=== PATIENT | male | born 1995 | race Caucasian/White ===

== ENCOUNTER → 2022-11-27 | Outpatient (CLI) | payer BC ==
--- NOTE | 2022-11-27 17:55 | CA ---
Transthoracic Echo Report Name: William Stephenson Age: 27 Gender: M : 1995 Exam Date: 11/27/2022 14:50 Exam Location: [place] [facility] Ht (in): 72 Wt (lb): 160 Ordering Physician: Laya Gannon MD Attending/Referring Phys: Laya Gannon MD [employer] Megan Lewis, [facility] Procedure CPT: Indications: R06.00 Cardiac Hx: Technical Quality: Good Contrast 1: Total Dose (mL): Contrast 2: Total Dose (mL): MEASUREMENTS (Male / Female) Normal Values 2D ECHO LV Diastolic Diameter PLAX 4.4 cm 4.2 - 5.9 / 3.9 - 5.3 cm LV Systolic Diameter PLAX 2.7 cm IVS Diastolic Thickness 1.0 cm 0.6 - 1.0 / 0.6 - 0.9 cm LVPW Diastolic Thickness 1.0 cm 0.6 - 1.0 / 0.6 - 0.9 cm LV Relative Wall Thickness 0.4 RV Internal Dim ED PLAX 3.9 cm LA Systolic Diameter LX 3.1 cm 3.0 - 4.0 / 2.7 - 3.8 cm LV Diastolic Volume MOD 4C 101.8 cm??? LV Systolic Volume MOD 4C 42.3 cm??? LV Ejection Fraction MOD 4C 58.4 % LV Diastolic Length 4C 7.8 cm LV Systolic Length 4C 6.2 cm LV Diastolic Volume MOD 2C 113.8 cm??? LV Systolic Volume MOD 2C 36.7 cm??? LV Ejection Fraction MOD 2C 67.7 % LV Diastolic Length 2C 8.6 cm LV Systolic Length 2C 6.9 cm LA Volume 43.0 cm??? 18 - 58 / 22 - 52 cm??? M-MODE Aortic Root Diameter MM 3.2 cm MV E Point Septal Separation 0.4 cm AV Cusp Separation MM 2.7 cm DOPPLER AV Peak Velocity 130.1 cm/s AV Peak Gradient 6.8 mmHg MV Area PHT 2.8 cm??? Mitral E Point Velocity 85.3 cm/s Mitral A Point Velocity 47.5 cm/s Mitral E to A Ratio 1.8 MV Deceleration Time 267.1 ms TR Peak Velocity 210.0 cm/s TR Peak Gradient 17.6 mmHg Right Ventricular Systolic Press 22.3 mmHg FINDINGS Left Ventricle Left ventricular ejection fraction is estimated at 55-60 %. Normal Left ventricular size, wall thickness, systolic function with no obvious regional wall motion abnormalities. Right Ventricle Moderate right ventricular dilatation. Right ventricular systolic pressure within normal limits. Right Atrium Normal right atrial size. Left Atrium Normal left atrial size. Mitral Valve Structurally normal mitral valve. No mitral stenosis,or prolapse. Trace mitral regurgitation Aortic Valve Trileaflet aortic valve. No aortic valve stenosis or regurgitation. Tricuspid Valve Mobile vegetation seen on the tricuspid valve. Mild tricuspid regurgitation. Pulmonic Valve Structurally normal pulmonic valve. Trace pulmonic regurgitation. Pericardium Normal pericardium. No pericardial effusion. Aorta Normal size aortic root and proximal ascending aorta. CONCLUSIONS 1. Normal size and systolic function 2. An echogenic mass on the tricuspid valve, suggestive of a vegetation, measuring 0.5 x 1 cm with mild tricuspid regurgitation and no pulmonary hypertension Previewed by: Dr. Arvin Martinez MD (Electronically Signed) Final Date: 27 November 2022 17:54
== END | disposition home or self-care (01) ==
LOC: RADECHMAIN 14:48
PROVIDERS: ATTEND Internal Medicine
DX: I36.1 Nonrheumatic tricuspid (valve) insufficiency (principal); R06.00 Dyspnea, unspecified
CPT/HCPCS: 93306

== ENCOUNTER 2022-12-29 19:15 | Observation (INO) | payer BC ==
[2022-12-29] MEDS ORDERED: MECLIZINE 12.5 MG TAB PO STA (19:27)
[2022-12-29] MEDS ORDERED: SODIUM CHLORIDE 0.9% 1,000 ML IV STA (19:27)
--- NOTE | 2022-12-29 19:50 | ED ---
Dizziness HPI - General Chief Complaint: Dizziness Stated Complaint: ABN EKG Time Seen by Provider: 12/29/22 19:20 Source: patient Mode of arrival: ambulatory Limitations: no limitations - History of Present Illness Initial Comments: Patient is a 27-year-old male presenting with chief complaint of dizziness. Patient states that he has been experiencing dizziness as well as nausea and generalized weakness for the last 3 days. Patient states that he has had to lay in bed for the majority of the day. Symptoms are worse with sitting up and with exertion. He admits to shortness of breath. He states that he gets occasional chest pain, this has been ongoing for greater than time that these symptoms. Patient was seen at walk in clinic prior to presenting to the ER, he was sent here for abnormal EKG from the clinic. Patient tells me that he had an echo performed back in November which showed vegetation on the tricuspid valve, he is waiting to see cardiology in January. No cough, congestion, sore throat, fever, chills. No abdominal pain or vomiting. No headache, vision or hearing changes, numbness, tingling. No history of IV drug use. - Related Data Home Medications Medication Instructions Recorded Confirmed Albuterol Sulfate [Albuterol 2 puff PO RT-Q6H PRN 12/29/22 12/29/22 Sulfate Hfa] Budesonide/Formoterol Fumarate 2 puff INHALATION RT-BID PRN 12/29/22 12/29/22 [Symbicort 160-4.5 Mcg Inhaler] Montelukast Sodium [Singulair] 10 mg PO DAILY 12/29/22 12/29/22 Allergies Allergy/AdvReac Type Severity Reaction Status Date / Time No Known Allergies Allergy Verified 12/29/22 22:19 Review of Systems ROS Statement: Those systems with pertinent positive or pertinent negative responses have been documented in the HPI. ROS Other: All systems not noted in ROS Statement are negative. Past Medical History Past Medical History: Asthma History of Any Multi-Drug Resistant Organisms: None Reported Past Surgical History: No Surgical Hx Reported Past Psychological History: No Psychological Hx Reported Smoking Status: Never smoker Past Alcohol Use History: Rare Past Drug Use History: None Reported General Exam Limitations: no limitations General appearance: alert, in no apparent distress Head exam: Present: atraumatic, normocephalic, normal inspection Eye exam: Present: normal appearance, EOMI. Absent: periorbital swelling Respiratory exam: Present: normal lung sounds bilaterally. Absent: respiratory distress, wheezes, rales, rhonchi, stridor Cardiovascular Exam: Present: regular rate, normal rhythm, normal heart sounds. Absent: systolic murmur, diastolic murmur, rubs, gallop, clicks Neurological exam: Present: alert, oriented X3, CN II-XII intact Expanded Patient oriented to: Present: person, place, time Eye Response: (4) open spontaneously Motor Response: (6) obeys commands Verbal Response: (5) oriented Barker Total: 15 Psychiatric exam: Present: normal affect, normal mood Skin exam: Present: warm, dry, intact, normal color. Absent: rash Course Vital Signs 12/29/22 12/29/22 19:16 19:53 Temperature 99.1 F Pulse Rate 85 Pulse Rate [ 79 Sitting] Pulse Rate [ 87 Standing] Pulse Rate [ 88 Supine] Respiratory 18 Rate Blood Pressure 148/73 Blood Pressure 126/70 [Sitting] Blood Pressure 127/79 [Standing] Blood Pressure 122/66 [Supine] O2 Sat by Pulse 100 Oximetry EKG Findings - EKG Comments: EKG Findings:: Sinus rhythm ventricular rate 98. ND interval 141. QRS 91. QT 340. QTC 395. Right axis deviation. Medical Decision Making - Medical Decision Making Was pt. sent in by a medical professional or institution ([facility], [employer], urgent care, hospital, or long term...) When possible be specific @ -No Did you speak to anyone other than the patient for history (EMS, parent, family, police, friend...)? What history was obtained from this source @ -No Did you review nursing and triage notes (agree or disagree)? Why? @ -I reviewed and agree with nursing and triage notes Were old charts reviewed (outside hosp., previous admission, EMS record, old EKG, old radiological studies, urgent care reports/EKG's, long term records)? Report findings @ -Reviewed echo performed outpatient in November Differential Diagnosis (chest pain, altered mental status, abdominal pain women, abdominal pain men, vaginal bleeding, weakness, fever, dyspnea, syncope, headache, dizziness, GI bleed, back pain, seizure, CVA, palpatations, mental health, musculoskeletal)? @ -[facility] Differential Dizziness: Benign paroxysmal positional Vertigo, Menieres disease, otitis media, acoustic neuroma, vertebrobasilar insufficiency, cerebellar stroke, encephalitis, hypovolemic, arrhythmia, coronary artery syndrome, anemia this is not meant to be an all-inclusive list EKG interpreted by me (3pts min.). @ -As above X-rays interpreted by me (1pt min.). @ -Chest x-ray shows no acute process CT interpreted by me (1pt min.). @ -None done U/S interpreted by me (1pt. min.). @ -None done What testing was considered but not performed or refused? (CT, X-rays, U/S, labs)? Why? @ -None What meds were considered but not given or refused? Why? @ -None Did you discuss the management of the patient with other professionals (professionals i.e. , PA, [employer]AL SPINNER, lab, RT, psych nurse, healthcare social worker, operations coordinator, teacher, community service patrol officer, test case developer)? Give summary @ -Discussed details with admitting physician Dr. Fabian, he accepted admission Was smoking cessation discussed for >3mins.? @ -No Was critical care preformed (if so, how long)? @ -No Were there social determinants of health that impacted care today? How? (Homelessness, low income, unemployed, alcoholism, drug addiction, transportation, low edu. Level, literacy, decrease access to med. care, assisted, rehab)? @ -No Was there de-escalation of care discussed even if they declined (Discuss DNR or withdrawal of care, Hospice)? DNR status @ -No What co-morbidities impacted this encounter? (DM, HTN, Smoking, COPD, CAD, Cancer, CVA, ARF, Chemo, Hep., AIDS, mental health diagnosis, sleep apnea, morbid obesity)? @ -asthma Was patient admitted / discharged? Hospital course, mention meds given and ro beatris, prescriptions, significant lab abnormalities, going to OR and other pertinent info. @ -Admitted. Patient is a 27-year-old male presenting with chief complaint of progressive shortness of breath and dizziness ongoing for the last 3 days. He also admits to vague chest pain. He had an echo performed in November which showed vegetations to the tricuspid valve, he has been unable to get in with cardiology until January. Lab work shows that he be seen 11.1. Glucose 126. Lactic acid 2.4, patient is receiving IV fluids. Patient is negative for Covid. UA and urine toxicology are negative. Chest x-ray shows no acute process. D- dimer is negative. Given the patient is increasingly symptomatic and has known history of agitation he'll be admitted to rule out infective endocarditis and for IV antibiotics. I spoke with Dr. Hathaway who accepted admission. Patient is agreeable with this plan. I discussed this case with my attending Dr. Eason. Undiagnosed new problem with uncertain prognosis? @ -No Drug Therapy requiring intensive monitoring for toxicity (Heparin, Nitro, Insulin, Cardizem)? @ -No Were any procedures done? @ -No Diagnosis/symptom? @ -Suspected endocarditis Acute, or Chronic, or Acute on Chronic? @ -Acute Uncomplicated (without systemic symptoms) or Complicated (systemic symptoms)? @ Complicated Side effects of treatment? @ -No Exacerbation, Progression, or Severe Exacerbation? @ -No Poses a threat to life or bodily function? How? (Chest pain, [place], AL, pneumonia, PE, COPD, DKA, ARF, appy, cholecystitis, CVA, Diverticulitis, Homicidal, Suicidal, threat to staff... and all critical care pts) @ -Yes, infection -> sepsis -> hypoperfusion -> - Lab Data Result diagrams: 12/29/22 19:35 12/29/22 19:35 Lab Results 12/29/22 12/29/22 12/29/22 Range/Units 19:35 19:35 19:35 WBC 11.1 H (3.8-10.6) k/uL RBC 5.06 (4.30-5.90) m/uL Hgb 15.6 (13.0-17.5) gm/dL Hct 45.3 (39.0-53.0) % MCV 89.6 (80.0-100.0) fL MCH 30.9 (25.0-35.0) pg MCHC 34.5 (31.0-37.0) g/dL RDW 12.3 (11.5-15.5) % Plt Count 226 (150-450) k/uL MPV 7.9 Neutrophils % 81 % Lymphocytes % 13 % Monocytes % 4 % Eosinophils % 2 % Basophils % 0 % Neutrophils # 8.9 H (1.3-7.7) k/uL Lymphocytes # 1.4 (1.0-4.8) k/uL Monocytes # 0.4 (0-1.0) k/uL Eosinophils # 0.2 (0-0.7) k/uL Basophils # 0.0 (0-0.2) k/uL PT 11.1 (9.0-12.0) sec INR 1.1 (<1.2) D-Dimer (<0.60) mg/L FEU Sodium 139 (137-145) mmol/L Potassium 3.9 (3.5-5.1) mmol/L Chloride 104 (98-107) mmol/L Carbon Dioxide 26 (22-30) mmol/L Anion Gap 9 mmol/L BUN 16 (9-20) mg/dL Creatinine 0.68 (0.66-1.25) mg/dL Est GFR (CKD-EPI)AfAm >90 (>60 ml/min/1.73 sqM) Est GFR (CKD-EPI)NonAf >90 (>60 ml/min/1.73 sqM) Glucose 126 H (74-99) mg/dL Lactic Ac Sepsis Rflx Plasma Lactic Acid Jt (0.7-2.0) mmol/L Calcium 9.5 (8.4-10.2) mg/dL Total Bilirubin 1.1 (0.2-1.3) mg/dL AST 27 (17-59) U/L ALT 24 (4-49) U/L Alkaline Phosphatase 63 (38-126) U/L Troponin I (0.000-0.034) ng/mL Total Protein 7.3 (6.3-8.2) g/dL Albumin 4.6 (3.5-5.0) g/dL Urine Color Urine Appearance (Clear) Urine pH (5.0-8.0) Ur Specific [place] (1.001-1.035) Urine Protein (Negative) Urine Glucose (UA) (Negative) Urine Ketones (Negative) Urine Blood (Negative) Urine Nitrite (Negative) Urine Bilirubin (Negative) Urine Urobilinogen (<2.0) mg/dL Ur Leukocyte Esterase (Negative) Urine WBC (0-5) /hpf Amorphous Sediment (None) /hpf Urine Opiates Screen (NotDetected) Ur Oxycodone Screen (NotDetected) Urine Methadone Screen (NotDetected) Ur Propoxyphene Screen (NotDetected) Ur Barbiturates Screen (NotDetected) U Tricyclic Antidepress (NotDetected) Ur Phencyclidine Scrn (NotDetected) Ur Amphetamines Screen (NotDetected) U Methamphetamines Scrn (NotDetected) U Benzodiazepines Scrn (NotDetected) Urine Cocaine Screen (NotDetected) U Marijuana (THC) Screen (NotDetected) Coronavirus (PCR) (Not Detectd) 12/29/22 12/29/22 12/29/22 Range/Units 19:35 19:35 19:35 WBC (3.8-10.6) k/uL RBC (4.30-5.90) m/uL Hgb (13.0-17.5) gm/dL Hct (39.0-53.0) % MCV (80.0-100.0) fL MCH (25.0-35.0) pg MCHC (31.0-37.0) g/dL RDW (11.5-15.5) % Plt Count (150-450) k/uL MPV Neutrophils % % Lymphocytes % % Monocytes % % Eosinophils % % Basophils % % Neutrophils # (1.3-7.7) k/uL Lymphocytes # (1.0-4.8) k/uL Monocytes # (0-1.0) k/uL Eosinophils # (0-0.7) k/uL Basophils # (0-0.2) k/uL PT (9.0-12.0) sec INR (<1.2) D-Dimer <0.17 (<0.60) mg/L FEU Sodium (137-145) mmol/L Potassium (3.5-5.1) mmol/L Chloride (98-107) mmol/L Carbon Dioxide (22-30) mmol/L Anion Gap mmol/L BUN (9-20) mg/dL Creatinine (0.66-1.25) mg/dL Est GFR (CKD-EPI)AfAm (>60 ml/min/1.73 sqM) Est GFR (CKD-EPI)NonAf (>60 ml/min/1.73 sqM) Glucose (74-99) mg/dL Lactic Ac Sepsis Rflx Plasma Lactic Acid Jt 2.4 H* (0.7-2.0) mmol/L Calcium (8.4-10.2) mg/dL Total Bilirubin (0.2-1.3) mg/dL AST (17-59) U/L ALT (4-49) U/L Alkaline Phosphatase (38-126) U/L Troponin I <0.012 (0.000-0.034) ng/mL Total Protein (6.3-8.2) g/dL Albumin (3.5-5.0) g/dL Urine Color Urine Appearance (Clear) Urine pH (5.0-8.0) Ur Specific [place] (1.001-1.035) Urine Protein (Negative) Urine Glucose (UA) (Negative) Urine Ketones (Negative) Urine Blood (Negative) Urine Nitrite (Negative) Urine Bilirubin (Negative) Urine Urobilinogen (<2.0) mg/dL Ur Leukocyte Esterase (Negative) Urine WBC (0-5) /hpf Amorphous Sediment (None) /hpf Urine Opiates Screen (NotDetected) Ur Oxycodone Screen (NotDetected) Urine Methadone Screen (NotDetected) Ur Propoxyphene Screen (NotDetected) Ur Barbiturates Screen (NotDetected) U Tricyclic Antidepress (NotDetected) Ur Phencyclidine Scrn (NotDetected) Ur Amphetamines Screen (NotDetected) U Methamphetamines Scrn (NotDetected) U Benzodiazepines Scrn (NotDetected) Urine Cocaine Screen (NotDetected) U Marijuana (THC) Screen (NotDetected) Coronavirus (PCR) (Not Detectd) 12/29/22 12/29/22 12/29/22 Range/Units 20:05 20:10 20:13 WBC (3.8-10.6) k/uL RBC (4.30-5.90) m/uL Hgb (13.0-17.5) gm/dL Hct (39.0-53.0) % MCV (80.0-100.0) fL MCH (25.0-35.0) pg MCHC (31.0-37.0) g/dL RDW (11.5-15.5) % Plt Count (150-450) k/uL MPV Neutrophils % % Lymphocytes % % Monocytes % % Eosinophils % % Basophils % % Neutrophils # (1.3-7.7) k/uL Lymphocytes # (1.0-4.8) k/uL Monocytes # (0-1.0) k/uL Eosinophils # (0-0.7) k/uL Basophils # (0-0.2) k/uL PT (9.0-12.0) sec INR (<1.2) D-Dimer (<0.60) mg/L FEU Sodium (137-145) mmol/L Potassium (3.5-5.1) mmol/L Chloride (98-107) mmol/L Carbon Dioxide (22-30) mmol/L Anion Gap mmol/L BUN (9-20) mg/dL Creatinine (0.66-1.25) mg/dL Est GFR (CKD-EPI)AfAm (>60 ml/min/1.73 sqM) Est GFR (CKD-EPI)NonAf (>60 ml/min/1.73 sqM) Glucose (74-99) mg/dL Lactic Ac Sepsis Rflx Y Plasma Lactic Acid Jt (0.7-2.0) mmol/L Calcium (8.4-10.2) mg/dL Total Bilirubin (0.2-1.3) mg/dL AST (17-59) U/L ALT (4-49) U/L Alkaline Phosphatase (38-126) U/L Troponin I (0.000-0.034) ng/mL Total Protein (6.3-8.2) g/dL Albumin (3.5-5.0) g/dL Urine Color Light Yellow Urine Appearance Cloudy (Clear) Urine pH 8.0 (5.0-8.0) Ur Specific [place] 1.015 (1.001-1.035) Urine Protein Negative (Negative) Urine Glucose (UA) Negative (Negative) Urine Ketones Negative (Negative) Urine Blood Negative (Negative) Urine Nitrite Negative (Negative) Urine Bilirubin Negative (Negative) Urine Urobilinogen <2.0 (<2.0) mg/dL Ur Leukocyte Esterase Negative (Negative) Urine WBC 1 (0-5) /hpf Amorphous Sediment Occasional H (None) /hpf Urine Opiates Screen Not Detected (NotDetected) Ur Oxycodone Screen Not Detected (NotDetected) Urine Methadone Screen Not Detected (NotDetected) Ur Propoxyphene Screen Not Detected (NotDetected) Ur Barbiturates Screen Not Detected (NotDetected) U Tricyclic Antidepress Not Detected (NotDetected) Ur Phencyclidine Scrn Not Detected (NotDetected) Ur Amphetamines Screen Not Detected (NotDetected) U Methamphetamines Scrn Not Detected (NotDetected) U Benzodiazepines Scrn Not Detected (NotDetected) Urine Cocaine Screen Not Detected (NotDetected) U Marijuana (THC) Screen Not Detected (NotDetected) Coronavirus (PCR) Not Detected (Not Detectd) 12/29/22 Range/Units 22:30 WBC (3.8-10.6) k/uL RBC (4.30-5.90) m/uL Hgb (13.0-17.5) gm/dL Hct (39.0-53.0) % MCV (80.0-100.0) fL MCH (25.0-35.0) pg MCHC (31.0-37.0) g/dL RDW (11.5-15.5) % Plt Count (150-450) k/uL MPV Neutrophils % % Lymphocytes % % Monocytes % % Eosinophils % % Basophils % % Neutrophils # (1.3-7.7) k/uL Lymphocytes # (1.0-4.8) k/uL Monocytes # (0-1.0) k/uL Eosinophils # (0-0.7) k/uL Basophils # (0-0.2) k/uL PT (9.0-12.0) sec INR (<1.2) D-Dimer (<0.60) mg/L FEU Sodium (137-145) mmol/L Potassium (3.5-5.1) mmol/L Chloride (98-107) mmol/L Carbon Dioxide (22-30) mmol/L Anion Gap mmol/L BUN (9-20) mg/dL Creatinine (0.66-1.25) mg/dL Est GFR (CKD-EPI)AfAm (>60 ml/min/1.73 sqM) Est GFR (CKD-EPI)NonAf (>60 ml/min/1.73 sqM) Glucose (74-99) mg/dL Lactic Ac Sepsis Rflx Plasma Lactic Acid Jt 0.8 (0.7-2.0) mmol/L Calcium (8.4-10.2) mg/dL Total Bilirubin (0.2-1.3) mg/dL AST (17-59) U/L ALT (4-49) U/L Alkaline Phosphatase (38-126) U/L Troponin I (0.000-0.034) ng/mL Total Protein (6.3-8.2) g/dL Albumin (3.5-5.0) g/dL Urine Color Urine Appearance (Clear) Urine pH (5.0-8.0) Ur Specific [place] (1.001-1.035) Urine Protein (Negative) Urine Glucose (UA) (Negative) Urine Ketones (Negative) Urine Blood (Negative) Urine Nitrite (Negative) Urine Bilirubin (Negative) Urine Urobilinogen (<2.0) mg/dL Ur Leukocyte Esterase (Negative) Urine WBC (0-5) /hpf Amorphous Sediment (None) /hpf Urine Opiates Screen (NotDetected) Ur Oxycodone Screen (NotDetected) Urine Methadone Screen (NotDetected) Ur Propoxyphene Screen (NotDetected) Ur Barbiturates Screen (NotDetected) U Tricyclic Antidepress (NotDetected) Ur Phencyclidine Scrn (NotDetected) Ur Amphetamines Screen (NotDetected) U Methamphetamines Scrn (NotDetected) U Benzodiazepines Scrn (NotDetected) Urine Cocaine Screen (NotDetected) U Marijuana (THC) Screen (NotDetected) Coronavirus (PCR) (Not Detectd) Disposition Clinical Impression: Dizziness, Shortness of breath, Tricuspid valve vegetation Disposition: ADMITTED IP TO THIS HOSP Condition: Fair Time of Disposition: 22:37
[2022-12-29 19:53] LABS: Basophils % (A) 0 %; Eosinophils # (A) 0.2 k/uL (0-0.7); Eosinophils % (A) 2 %; HCT 45.3 % (39.0-53.0); HGB 15.6 gm/dL (13.0-17.5); Lymphocytes # (A) 1.4 k/uL (1.0-4.8); Lymphocytes % (A) 13 %; MCH 30.9 pg (25.0-35.0); MCHC 34.5 g/dL (31.0-37.0); MCV 89.6 fL (80.0-100.0); Mean Platelet Volume 7.9; Monocytes # (A) 0.4 k/uL (0-1.0); Monocytes % (A) 4 %; Neutrophils # (A) 8.9 k/uL (1.3-7.7); Neutrophils % (A) 81 %; Platelet Count 226 k/uL (150-450); RBC 5.06 m/uL (4.30-5.90); RDW 12.3 % (11.5-15.5); WBC 11.1 k/uL (3.8-10.6)
[2022-12-29 20:00] LABS: INR 1.1 (<1.2); Prothrombin Time 11.1 sec (9.0-12.0)
[2022-12-29 20:02] LABS: ALT 24 U/L (4-49); AST 27 U/L (17-59); African American GFR (CKD) >90 (>60 ml/min/1.73 sqM); Albumin 4.6 g/dL (3.5-5.0); Alkaline Phosphatase 63 U/L (38-126); Anion Gap 9 mmol/L; Blood Urea Nitrogen 16 mg/dL (9-20); Calcium 9.5 mg/dL (8.4-10.2); Carbon Dioxide 26 mmol/L (22-30); Chloride 104 mmol/L (98-107); Glucose 126 mg/dL (74-99); Non-African American GFR(CKD) >90 (>60 ml/min/1.73 sqM); Potassium 3.9 mmol/L (3.5-5.1); Sodium 139 mmol/L (137-145); Total Bilirubin 1.1 mg/dL (0.2-1.3); Total Protein 7.3 g/dL (6.3-8.2)
--- NOTE | 2022-12-29 20:37 | XR ---
EXAMINATION TYPE: XR chest 2V DATE OF EXAM: 12/29/2022 COMPARISON: NONE HISTORY: Chest pain TECHNIQUE: Frontal and lateral views of the chest are obtained. FINDINGS: There is no focal air space opacity. No evidence for pneumothorax. No pleural effusion. The cardiac silhouette size is within normal limits. The osseous structures are grossly intact. IMPRESSION: 1. No acute cardiopulmonary process.
[2022-12-29 21:31] LABS: Amorphous Sediment,Urine Occasional /hpf; Appearance,Urine Cloudy (Clear); Bilirubin,Urine Negative (Negative); Blood,Urine Negative (Negative); Color,Urine Light Yellow; Glucose,Urine (UA) Negative (Negative); Ketones,Urine Negative (Negative); Leukocyte Esterase,Urine Negative (Negative); Nitrite,Urine Negative (Negative); Protein,Urine Negative (Negative); Specific Gravity,Urine 1.015 (1.001-1.035); Urobilinogen,Urine <2.0 mg/dL (<2.0); WBC,Urine 1 /hpf (0-5)
[2022-12-29 21:32] LABS: Amphetamine Screen,Urine Not Detected (NotDetected); Barbiturate Screen,Urine Not Detected (NotDetected); Benzodiazepines Screen,Urine Not Detected (NotDetected); Cocaine Screen,Urine Not Detected (NotDetected); Methadone Screen, Urine Not Detected (NotDetected); Opiate Screen,Urine Not Detected (NotDetected); Oxycodone Screen, Urine Not Detected (NotDetected); Phencyclidine Screen,Urine Not Detected (NotDetected); Tricyclic Antidepressant,Urine Not Detected (NotDetected); Urn Cannabinoid Scrn Not Detected (NotDetected)
[2022-12-29] MEDS ORDERED: VANCOMYCIN IV PER PHARMACY 1 EACH MISC MISCELLANE PRN ×2 (22:36→23:50)
[2022-12-29] MEDS ORDERED: NALOXONE 0.4 MG/ML 1 ML VIAL IV PRN (22:38)
[2022-12-29] MEDS ORDERED: VANCOMYCIN 1,250 MG in SODIUM CHLORIDE 0.9% 250 ML IVPB STA (22:39)
[2022-12-29] MEDS: SODIUM CHLORIDE 0.9% 1,000 ML IV SCH (22:59)
[2022-12-29] MEDS ORDERED: ACETAMINOPHEN TAB 325 MG TAB PO PRN (23:51)
--- NOTE | 2022-12-30 00:32 | P.HPIM ---
History of Present Illness H&P Date: 12/29/22 Chief Complaint: generalized weakness fatigue 27 year old male with exercise induced asthma patient reports over the past 1 year, he has been progressively noticing occasional shortness of breath , feeling dizzy and fatigued, this has been getting worse recently . he had echocardiography done by his prosthodontist around november, which showed vegetation over the tricuspid valve, however, he could not get in to see a editing internship until next month . 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 he denies any IV drug abuse. he does report some dental carries but denies any dental infection he denies tobacco smoking, illicit drugs or heavy alcohol Review of Systems Pertinent positives as noted in HPI. All other systems were reviewed and are negative Past Medical History Past Medical History: Asthma History of Any Multi-Drug Resistant Organisms: None Reported Past Surgical History: No Surgical Hx Reported Past Psychological History: No Psychological Hx Reported Smoking Status: Never smoker Past Alcohol Use History: Rare Past Drug Use History: None Reported Medications and Allergies Home Medications Medication Instructions Recorded Confirmed Type Albuterol Sulfate [Albuterol 2 puff PO RT-Q6H PRN 12/29/22 12/29/22 History Sulfate Hfa] Budesonide/Formoterol Fumarate 2 puff INHALATION RT-BID PRN 12/29/22 12/29/22 History [Symbicort 160-4.5 Mcg Inhaler] Montelukast Sodium [Singulair] 10 mg PO DAILY 12/29/22 12/29/22 History Allergies Allergy/AdvReac Type Severity Reaction Status Date / Time No Known Allergies Allergy Verified 12/29/22 22:19 Physical Exam Vitals: Vital Signs Temp Pulse Pulse Pulse Pulse Resp BP 12/29/22 19:53 79 87 88 12/29/22 19:16 99.1 F 85 18 148/73 BP BP BP Pulse Ox 12/29/22 19:53 126/70 127/79 122/66 12/29/22 19:16 100 Intake and Output 12/29/22 12/29/22 12/30/22 14:59 22:59 06:59 Other: Weight 72.575 kg Constitutional: No acute distress, conversant, pleasant Eyes: Anicteric sclerae, moist conjunctiva, Pupils equal round reactive to light ENMT: NC/AT Oropharynx clear, no erythema, or exudates Neck: Supple, no masses, or JVD No carotid bruits No thyromegaly Lungs: Clear to auscultation Clear to percussion Normal respiratory effort, no accessory muscle use Cardiovascular: Heart regular in rate and rhythm, No murmurs, gallops, or rubs No peripheral edema Abdominal: Soft Nontender, no guarding, rebound or rigidity Abdomen moving with respiration Normoactive bowel sounds No hepatomegaly, No splenomegaly No palpable mass No abdominal wall hernia noted Skin: Normal temperature, tone, texture, turgor No induration No subcutaneous nodules No rash, lesions No ulcers Extremities: No digital cyanosis No clubbing Pedal pulses intact and symmetrical Radial pulses intact and symmetrical No calf tenderness Psychiatric: Alert and oriented to person, place and time Appropriate affect fair judgement Neuro Muscles Strength 5/5 in all 4 extremities Sensation to light touch grossly present throughout Cranial nerves II-XII grossly intact Lymphatics: no palpable cervical or supraclavicular lymph nodes Results CBC & Chem 7: 12/29/22 19:35 12/29/22 19:35 Labs: Abnormal Lab Results - Last 24 Hours (Table) 12/29/22 12/29/22 12/29/22 Range/Units 19:35 19:35 19:35 WBC 11.1 H (3.8-10.6) k/uL Neutrophils # 8.9 H (1.3-7.7) k/uL Glucose 126 H (74-99) mg/dL Plasma Lactic Acid Jt 2.4 H* (0.7-2.0) mmol/L Amorphous Sediment (None) /hpf 12/29/22 Range/Units 20:13 WBC (3.8-10.6) k/uL Neutrophils # (1.3-7.7) k/uL Glucose (74-99) mg/dL Plasma Lactic Acid Jt (0.7-2.0) mmol/L Amorphous Sediment Occasional H (None) /hpf Assessment and Plan Assessment: 27 year old male with exercise induced asthma, coming in for increase dizziness, and exertional dyspnea , I discussed the case with ED doc, patient had echocardiogram done November 2022 positive for tricuspid valve vegetation, I accepted the admission to rule out infective endocarditis for IV antibiotics with anticipated length of stay > 2 midnights tricuspid valve vegetations, 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 ID consult cardio consult blood cultures vanco dosing by pharmacy WBC 11.1 troponin negative afebrile IVF hydration with normall saline , s/p 1 L bolus then 75 cc per hour elevated lactic acid , follow up levels tylenol for fever PRN CXR no acute pathology exercise induced asthma symbicort bid duoneb PRN full code DVT PPX lovenox 40 mg sc daily GI PPX protonix 40 mg po daily
[2022-12-30] MEDS: PANTOPRAZOLE 40 MG TABLET PO SCH (06:40)
[2022-12-30] MEDS: VANCOMYCIN 1,250 MG in SODIUM CHLORIDE 0.9% 250 ML IVPB SCH ×3 (06:40→23:03)
[2022-12-30] MEDS: SYMBICORT 160-4.5 MCG INHALER INHALATION SCH ×2 (08:57→19:41)
[2022-12-30] MEDS: ENOXAPARIN 40 MG/0.4 ML SYRINGE SQ SCH (09:15)
[2022-12-30] MEDS: MONTELUKAST 10 MG TAB PO SCH (09:15)
--- NOTE | 2022-12-30 10:42 | P.PN ---
Subjective Progress Note Date: 12/30/22 Hospital Course: 27-year-old male with exercise-induced asthma presenting with shortness of breath, lightheadedness, fatigue. He was seen by a mushroom growing supervisor from November, echocardiogram at that time showed tricuspid valve vegetation. He is presenting with increased shortness of breath and lightheadedness. In the ED, temperature was 99.1, pulse 85, blood pressure 148/73, saturating at 100% on room air. Lab work initially showed WBC 11.1, CMP unremarkable lactic acid was 2.4, troponin negative 3, urinalysis negative, toxicology negative. Patient denies any IV drug use or recent dental work. He did have recent dental caries which needs dental work. Chest x-ray did not show any acute process. EKG showed normal sinus rhythm. Patient admitted for possible infective endocarditis. Cardiology consulted. Subjective: Seen and examined at bedside. No acute events overnight. Still feels lightheadedness occasionally with exertion. Has occasional shortness of breath with exertion as well. Denies any significant chest pain, abdominal pain, nausea, vomiting, bowel or urinary complaints. Pertinent positives and negatives as discussed above, a complete review of systems was performed and all other systems are negative. Vitals Signs Reviewed. General: nontoxic, no distress, appears at stated age Derm: warm, dry Head: atraumatic, normocephalic, symmetric Eyes: EOMI, no lid lag, anicteric sclera Mouth: no lip lesion, mucus membranes moist Cardiovascular: S1S2 reg, no murmur Lungs: CTA bilateral, no rhonchi, no rales , no accessory muscle use Abdominal: soft, nontender to palpation, no guarding, no appreciable organomegaly Ext: no gross muscle atrophy, no edema, no contractures Neuro: CN II-XI grossly intact, no focal neuro deficits Psych: Alert, oriented, appropriate affect Data Reviewed Today: Pertinent Labs: Repeat lactate 0.8, troponin negative 3 Imaging: Chest x-ray personally interpreted, no opacities EKG personally interpreted, normal sinus rhythm Assessment and Plan: Active: Tricuspid valve vegetations, 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 Presyncope Leukocytosis Exercise-induced asthma, not in exacerbation -Possibly has infective endocarditis, unclear source -Could also be related to autoimmune disease or tumor -ID consulted, cardiology consulted -We'll likely need repeat echocardiogram -On vancomycin IV, dosed based on trough levels, monitor for renal toxicity with daily BMP -Orthostatics negative -However, patient was given 1 L of normal saline in the ED -Continue normal saline at 75 mL an hour -Continue home Symbicort and montelukast Resolved: Lactic acidosis DVT ppx: Lovenox Code status: full code Anticipated discharge place: Pending clinical course Anticipated discharge time: Pending clinical course Objective - Vital Signs Vital signs: Vital Signs Temp 98.4 F 12/30/22 04:00 Pulse 70 12/30/22 04:00 Resp 18 12/30/22 04:00 BP 109/69 12/30/22 04:00 Pulse Ox 98 12/30/22 04:00 FiO2 Intake & Output 12/29/22 12/30/22 12/30/22 18:59 06:59 18:59 Intake Total 540 Output Total 0 Balance 540 0 Weight 72.575 kg Intake: Oral 540 Output: Gastric Drainage 0 Urine 0 Stool 0 Urine/Stool Mix 0 Emesis 0 Oral Regurgitation 0 Other 0 Other: Voiding Method Toilet # Voids 0 # Bowel Movements 0 - Labs CBC & Chem 7: 12/29/22 19:35 12/29/22 19:35 Labs: Abnormal Lab Results - Last 24 Hours (Table) 12/29/22 12/29/22 12/29/22 Range/Units 19:35 19:35 19:35 WBC 11.1 H (3.8-10.6) k/uL Neutrophils # 8.9 H (1.3-7.7) k/uL Glucose 126 H (74-99) mg/dL Plasma Lactic Acid Jt 2.4 H* (0.7-2.0) mmol/L Amorphous Sediment (None) /hpf 12/29/22 Range/Units 20:13 WBC (3.8-10.6) k/uL Neutrophils # (1.3-7.7) k/uL Glucose (74-99) mg/dL Plasma Lactic Acid Jt (0.7-2.0) mmol/L Amorphous Sediment Occasional H (None) /hpf
--- NOTE | 2022-12-30 12:56 | P.CRDCN ---
History of Present Illness Consult date: 12/30/22 Requesting physician: Ana Fabian Reason for Consult (text): Tricuspid vegetation Chief complaint: dizziness, nausea History of present illness: The pleasant 27-year-old gentleman with a past history of exercise-induced asthma. Has recently been followed Dr. Jagdeep Jasso due to shortness of breath. He's had adjustments made to his asthma medications without relief. He underwent an echocardiogram with Doppler study done here in November of this year which revealed normal LV systolic size and function, moderate right ventricular dilatation and mobile vegetation on the tricuspid valve measuring 0.5 x 1 cm with mild tricuspid regurgitation and no pulmonary hypertension. He has been apparently awaiting an appointment for cardiology consultation as an outpatient. A few days ago he started developing some dizziness and nausea. He's had no syncope. The symptoms are better if he is still and worse with any activity. He's also been experiencing some chest discomfort that varies in location and duration and not related to physical activity. He denies any history of smoking, excessive caffeine use, alcohol abuse and denies he any history of drug use. His vital signs have been stable and he's been afebrile. Plasma lactic acid level was 2.4 in admission down to 0.8. Troponins have been negative 3. White blood cell count 11,000. He continues to complain of some dizziness while walking to the bathroom. Blood cultures have been drawn and are pending. Past Medical History Past Medical History: Asthma History of Any Multi-Drug Resistant Organisms: None Reported Past Surgical History: No Surgical Hx Reported Past Psychological History: No Psychological Hx Reported Smoking Status: Never smoker Past Alcohol Use History: Rare Past Drug Use History: None Reported Medications and Allergies Home Medications Medication Instructions Recorded Confirmed Type Albuterol Sulfate [Albuterol 2 puff PO RT-Q6H PRN 12/29/22 12/29/22 History Sulfate Hfa] Budesonide/Formoterol Fumarate 2 puff INHALATION RT-BID PRN 12/29/22 12/29/22 History [Symbicort 160-4.5 Mcg Inhaler] Montelukast Sodium [Singulair] 10 mg PO DAILY 12/29/22 12/29/22 History Allergies Allergy/AdvReac Type Severity Reaction Status Date / Time No Known Allergies Allergy Verified 12/29/22 22:19 Physical Exam Vitals: Vital Signs Temp Pulse Pulse Pulse Pulse Resp BP 12/30/22 11:50 98.2 F 76 16 12/30/22 09:05 98.0 F 81 16 12/30/22 04:00 98.4 F 70 18 12/30/22 01:30 18 12/30/22 00:41 98.1 F 73 18 12/29/22 19:53 79 87 88 12/29/22 19:16 99.1 F 85 18 148/73 BP BP BP BP Pulse Ox 12/30/22 11:50 110/66 97 12/30/22 09:05 122/66 100 12/30/22 04:00 109/69 98 12/30/22 01:30 12/30/22 00:41 125/73 97 12/29/22 19:53 126/70 127/79 122/66 12/29/22 19:16 100 Intake and Output 12/29/22 12/30/22 12/30/22 22:59 06:59 14:59 Intake Total 540 Output Total 0 Balance 540 0 Intake: Oral 540 Output: Gastric Drainage 0 Urine 0 Stool 0 Urine/Stool Mix 0 Emesis 0 Oral Regurgitation 0 Other 0 Other: Voiding Method Toilet # Voids 0 # Bowel Movements 0 Weight 72.575 kg 72.575 kg PHYSICAL EXAMINATION: This is a 27-year-old gentleman in no apparent distress at the time of my examination. HEENT: Head is atraumatic, normocephalic. Pupils are equal, round. Sclerae anicteric. Conjunctivae are clear. Mucous membranes of the mouth are moist. Neck is supple. There is no elevated jugular venous pressure. No carotid bruit is heard. CHEST EXAMINATION: Clear to auscultation bilaterally. No wheezes rales or rhonchi. Respirations even and nonlabored. HEART EXAMINATION: Heart regular, positive S1 and S2. No S3. No S4. No clicks , rubs or murmurs. ABDOMEN: Soft, nontender. Bowel sounds are heard. No organomegaly noted. EXTREMITIES: 2+ peripheral pulses with no evidence of peripheral edema and no calf tenderness noted. NEUROLOGIC EXAMINATION: Patient is awake, alert and oriented x3. Results 12/29/22 19:35 12/29/22 19:35 Cardiac Enzymes 12/29/22 12/29/22 12/30/22 Range/Units 19:35 19:35 01:34 AST 27 (17-59) U/L Troponin I <0.012 <0.012 (0.000-0.034) ng/mL 12/30/22 Range/Units 07:48 AST (17-59) U/L Troponin I <0.012 (0.000-0.034) ng/mL Coagulation 12/29/22 Range/Units 19:35 PT 11.1 (9.0-12.0) sec CBC 12/29/22 Range/Units 19:35 WBC 11.1 H (3.8-10.6) k/uL RBC 5.06 (4.30-5.90) m/uL Hgb 15.6 (13.0-17.5) gm/dL Hct 45.3 (39.0-53.0) % Plt Count 226 (150-450) k/uL Comprehensive Metabolic Panel 12/29/22 Range/Units 19:35 Sodium 139 (137-145) mmol/L Potassium 3.9 (3.5-5.1) mmol/L Chloride 104 (98-107) mmol/L Carbon Dioxide 26 (22-30) mmol/L BUN 16 (9-20) mg/dL Creatinine 0.68 (0.66-1.25) mg/dL Glucose 126 H (74-99) mg/dL Calcium 9.5 (8.4-10.2) mg/dL AST 27 (17-59) U/L ALT 24 (4-49) U/L Alkaline Phosphatase 63 (38-126) U/L Total Protein 7.3 (6.3-8.2) g/dL Albumin 4.6 (3.5-5.0) g/dL Current Medications Generic Name Dose Route Start Last Admin Trade Name Freq PRN Reason Stop Dose Admin Acetaminophen 650 mg 12/29/22 23:51 Acetaminophen Tab 325 Mg Tab PO Q4HR PRN Fever and/ or Pain Budesonide/Formoterol Fumarate 2 puff 12/30/22 08:00 12/30/22 08:57 Symbicort 160-4.5 Mcg Inhaler INHALATION 2 puff RT-BID MALCOLM Administration Enoxaparin Sodium 40 mg 12/30/22 09:00 12/30/22 09:15 Enoxaparin 40 Mg/0.4 Ml Syringe SQ 40 mg DAILY MALCOLM Administration Sodium Chloride 1,000 mls @ 75 mls/hr 12/29/22 22:45 12/29/22 22:59 Saline 0.9% IV 75 mls/hr .[id number] MALCOLM Administration Vancomycin HCl 1,250 mg/ 250 mls @ 125 mls/hr 12/30/22 07:00 12/30/22 06:40 Sodium Chloride IVPB 125 mls/hr Q8H MALCOLM Administration Miscellaneous Information 1 each 12/31/22 06:00 Vancomycin Trough Due 1 Each Misc MISCELLANE 12/31/22 06:01 ONCE ONE Montelukast Sodium 10 mg 12/30/22 09:00 12/30/22 09:15 Montelukast 10 Mg Tab PO 10 mg DAILY MALCOLM Administration Naloxone HCl 0.2 mg 12/29/22 22:38 Naloxone 0.4 Mg/Ml 1 Ml Vial IV Q2M PRN Opioid Reversal Pantoprazole Sodium 40 mg 12/30/22 07:30 12/30/22 06:40 Pantoprazole 40 Mg Tablet PO 40 mg [id number] MALCOLM Administration Intake and Output 12/29/22 12/30/22 12/30/22 22:59 06:59 14:59 Intake Total 540 Output Total 0 Balance 540 0 Intake: Oral 540 Output: Gastric Drainage 0 Urine 0 Stool 0 Urine/Stool Mix 0 Emesis 0 Oral Regurgitation 0 Other 0 Other: Voiding Method Toilet # Voids 0 # Bowel Movements 0 Weight 72.575 kg 72.575 kg 12/29/22 19:35 12/29/22 19:35 Assessment and Plan Assessment: #1 symptoms of dizziness and nausea #2 echocardiogram from November of this year showing possible tricuspid valve vegetation #3 leukocytosis #4 shortness of breath Plan: From cardiology perspective await blood cultures. We'll obtain a sed rate. Keep the patient nothing by mouth after midnight for transesophageal echocardiogram to be done tomorrow. Further recommendations to follow depending on findings. [employer] note has been reviewed, I agree with a documented findings and plan of care. Patient was seen and examined.
[2022-12-30] MEDS: SODIUM CHLORIDE 0.9% 1,000 ML IV SCH ×2 (15:48→23:03)
[2022-12-31] MEDS ORDERED: VANCOMYCIN TROUGH DUE 1 EACH MISC MISCELLANE ONE (06:00)
[2022-12-31 06:02] LABS: African American GFR (CKD) >90 (>60 ml/min/1.73 sqM); Anion Gap 4 mmol/L; Blood Urea Nitrogen 17 mg/dL (9-20); Carbon Dioxide 30 mmol/L (22-30); Chloride 107 mmol/L (98-107); Glucose 97 mg/dL (74-99); Non-African American GFR(CKD) >90 (>60 ml/min/1.73 sqM); Sodium 141 mmol/L (137-145)
[2022-12-31] MEDS: PANTOPRAZOLE 40 MG TABLET PO SCH (06:33)
[2022-12-31] MEDS: VANCOMYCIN 1,250 MG in SODIUM CHLORIDE 0.9% 250 ML IVPB SCH ×2 (06:53→17:24)
[2022-12-31 07:48] LABS: Basophils % (A) 0 %; Eosinophils # (A) 0.2 k/uL (0-0.7); Eosinophils % (A) 2 %; HCT 43.6 % (39.0-53.0); HGB 14.6 gm/dL (13.0-17.5); Lymphocytes # (A) 1.9 k/uL (1.0-4.8); Lymphocytes % (A) 30 %; MCH 31.1 pg (25.0-35.0); MCHC 33.6 g/dL (31.0-37.0); MCV 92.7 fL (80.0-100.0); Mean Platelet Volume 7.5; Monocytes # (A) 0.4 k/uL (0-1.0); Monocytes % (A) 7 %; Neutrophils # (A) 3.8 k/uL (1.3-7.7); Neutrophils % (A) 60 %; Platelet Count 216 k/uL (150-450); RDW 12.4 % (11.5-15.5); WBC 6.4 k/uL (3.8-10.6)
[2022-12-31] MEDS: SYMBICORT 160-4.5 MCG INHALER INHALATION SCH ×2 (09:00→21:37)
--- NOTE | 2022-12-31 10:16 | P.PN ---
Subjective Progress Note Date: 12/31/22 Hospital Course: 27-year-old male with exercise-induced asthma presenting with shortness of mary th, lightheadedness, fatigue. He was seen by a stator winder from November, echocardiogram at that time showed tricuspid valve vegetation. He is presenting with increased shortness of breath and lightheadedness. In the ED, temperature was 99.1, pulse 85, blood pressure 148/73, saturating at 100% on room air. Lab work initially showed WBC 11.1, CMP unremarkable lactic acid was 2.4, troponin negative 3, urinalysis negative, toxicology negative. Patient denies any IV drug use or recent dental work. He did have recent dental caries which needs dental work. Chest x-ray did not show any acute process. EKG showed normal sinus rhythm. Patient admitted for possible infective endocarditis. Cardiology consulted. Pending KEN. Subjective: Patient Seen and examined at bedside. No acute events overnight. Still feels lightheadedness occasionally with exertion. Has occasional shortness of breath with exertion as well. Denies any significant chest pain, abdominal pain, nausea, vomiting, bowel or urinary complaints. Pertinent positives and negatives as discussed above, a complete review of systems was performed and all other systems are negative. Vitals Signs Reviewed. General: nontoxic, no distress, appears at stated age Derm: warm, dry Head: atraumatic, normocephalic, symmetric Eyes: EOMI, no lid lag, anicteric sclera Mouth: no lip lesion, mucus membranes moist Cardiovascular: S1S2 reg, no murmur Lungs: CTA bilateral, no rhonchi, no rales , no accessory muscle use Abdominal: soft, nontender to palpation, no guarding, no appreciable organomegaly Ext: no gross muscle atrophy, no edema, no contractures Neuro: CN II-XI grossly intact, no focal neuro deficits Psych: Alert, oriented, appropriate affect Data Reviewed Today: Pertinent Labs: WBC 6.4, ESR 2, creatinine 2.84 Blood cultures pending Assessment and Plan: Active: Tricuspid valve vegetations, 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 Presyncope Exercise-induced asthma, not in exacerbation -Possibly has infective endocarditis, unclear source -Could also be related to autoimmune disease or tumor -ESR was negative, infectious and autoimmune disorder less likely -ID consulted, cardiology consulted -KEN pending -On vancomycin IV, dosed based on trough levels, monitor for renal toxicity with daily BMP -Orthostatics negative, possibly presyncope in the setting of valvular disease -Continue normal saline at 75 mL an hour -Continue home Symbicort and montelukast Resolved: Lactic acidosis Leukocytosis DVT ppx: Lovenox Code status: full code Anticipated discharge place: Pending clinical course Anticipated discharge time: Pending clinical course Objective - Vital Signs Vital signs: Vital Signs Temp 98.0 F 12/31/22 07:50 Pulse 61 12/31/22 07:50 Resp 16 12/31/22 07:50 BP 109/62 12/31/22 07:50 Pulse Ox 99 12/31/22 07:50 FiO2 Intake & Output 12/30/22 12/31/22 12/31/22 18:59 06:59 18:59 Intake Total 360 780 Output Total 0 Balance 360 780 Intake: Oral 360 780 Output: Gastric Drainage 0 Urine 0 Stool 0 Urine/Stool Mix 0 Emesis 0 Oral Regurgitation 0 Other 0 Other: Voiding Method Toilet Toilet # Voids 0 1 1 # Bowel Movements 0 0 - Labs CBC & Chem 7: 12/31/22 06:58 12/31/22 05:40
--- NOTE | 2022-12-31 11:05 | P.PN ---
Subjective Progress Note Date: 12/31/22 PROGRESS NOTE The patient is a 27-year-old male who presented with dyspnea, dizziness and right-sided chest discomfort. His dyspnea is better today, he had some mild dizziness. On the monitor he is in sinus mechanism with no evidence of malignant arrhythmia. He denies any palpitations. He has an echocardiogram done about a months ago that there is the possibility of tricuspid vegetation, the patient denies any IV drug abuse, fever or recent dental workup. Medications: Vancomycin PHYSICAL EXAMINATION: Blood pressure 109/60 heart rate 60 LUNGS: Clear to auscultation HEART: Regular rate and rhythm, S1, S2. No S3. No systolic murmur ABDOMEN: Soft, nontender, no organomegaly EXTREMETIES: No edema IMPRESSION: 1. Abnormal transthoracic echo was questionable of tricuspid regurgitation 2. Dyspnea with no evidence of fluid overload 3. Dizziness, no evidence of arrhythmia 4. Right-sided chest discomfort, atypical for ischemic heart disease PLAN: 1. Blood culture not available 2. KEN today 3. Depending on the results of the testing further recommendations will be made Objective - Vital Signs Vital signs: Vital Signs Temp 98.0 F 12/31/22 07:50 Pulse 61 12/31/22 07:50 Resp 16 12/31/22 07:50 BP 109/62 12/31/22 07:50 Pulse Ox 99 12/31/22 07:50 FiO2 Intake & Output 12/30/22 12/31/22 12/31/22 18:59 06:59 18:59 Intake Total 360 780 Output Total 0 Balance 360 780 Intake: Oral 360 780 Output: Gastric Drainage 0 Urine 0 Stool 0 Urine/Stool Mix 0 Emesis 0 Oral Regurgitation 0 Other 0 Other: Voiding Method Toilet Toilet # Voids 0 1 1 # Bowel Movements 0 0 - Labs CBC & Chem 7: 12/31/22 06:58 12/31/22 05:40
[2022-12-31] MEDS ORDERED: fentaNYL (PF) 50 MCG/ML 2 ML AMP ONE (11:37)
[2022-12-31] MEDS ORDERED: SODIUM CHLORIDE 0.9% 1,000 ML IV ONE (12:20)
[2022-12-31] MEDS: BENZOCAINE SPRAY 1 CAN TOPICAL ONE ×2 (12:20→12:30)
[2022-12-31] MEDS ORDERED: MIDAZOLAM 2 MG/2 ML VIAL IVP ONE ×2 (12:33→12:35)
[2022-12-31] MEDS ORDERED: fentaNYL (PF) 50 MCG/ML 2 ML AMP IVP ONE (12:33)
[2022-12-31] MEDS ORDERED: VANCOMYCIN 1,500 MG in SODIUM CHLORIDE 0.9% 500 ML 500 ML IVPB SCH (14:00)
--- NOTE | 2022-12-31 14:03 | P.PCN ---
Date of Procedure: 12/31/22 Description of Procedure: Indication: Evaluation of the tricuspid valve Procedure Description: After explaining the procedure to the patient, it's risk and complications, blood pressure, heart rate and O2 saturation were monitored. The throat was sprayed with Cetacaine. Patient received 3 mg intravenous Versed, 50 mcg intravenous fentanyl. The probe was introduced into the esophagus without difficulty. Images were obtained. Following that, the probe was removed. There was no immediate complication. Findings: Left atrial size is normal, left atrial appendage is normal. Left ventricle size and systolic function are normal. The aortic and mitral valve appears to be normal. The tricuspid valve appears to be redundant with mild prolapse but no evidence of vegetations. Descending thoracic aorta appears to be normal. Contrast bubble study revealed no shunting across the intra-atrial septum. No pericardial effusion was noted. Doppler: Pulse wave and color Doppler were obtained, an revealed mild multiple and tricuspid regurgitation, there was no shunting by color Doppler study Conclusion: 1. Normal left ventricle size and systolic function 2. Redundant tricuspid valve with mild prolapse and mild regurgitation. No evidence of vegetation 3. Mild mitral regurgitation 4. Normal appearance of the descending thoracic aorta 5. No shunting across the intra-atrial septum
[2022-12-31] MEDS: MONTELUKAST 10 MG TAB PO SCH (17:00)
[2022-12-31] MEDS: ENOXAPARIN 40 MG/0.4 ML SYRINGE SQ SCH (17:00)
[2022-12-31] MEDS: SODIUM CHLORIDE 0.9% 1,000 ML IV SCH (17:01)
[2022-12-31] MEDS ORDERED: ONDANSETRON 4 MG/2 ML VIAL IVP PRN (20:48)
[2023-01-01] MEDS: VANCOMYCIN 1,500 MG in SODIUM CHLORIDE 0.9% 500 ML 500 ML IVPB SCH ×2 (00:18→09:23)
[2023-01-01] MEDS: SODIUM CHLORIDE 0.9% 1,000 ML IV SCH ×2 (06:16→13:08)
[2023-01-01] MEDS: PANTOPRAZOLE 40 MG TABLET PO SCH (06:17)
[2023-01-01] MEDS: SYMBICORT 160-4.5 MCG INHALER INHALATION SCH ×2 (07:57→20:35)
[2023-01-01 08:14] LABS: African American GFR (CKD) >90 (>60 ml/min/1.73 sqM); Non-African American GFR(CKD) >90 (>60 ml/min/1.73 sqM)
[2023-01-01] MEDS: MONTELUKAST 10 MG TAB PO SCH (09:23)
[2023-01-01] MEDS: ENOXAPARIN 40 MG/0.4 ML SYRINGE SQ SCH (09:23)
--- NOTE | 2023-01-01 09:49 | P.PN ---
Subjective PROGRESS NOTE The patient is a 27-year-old male who presented with dyspnea, dizziness and right-sided chest discomfort. His dyspnea is better today, he had some mild dizziness. On the monitor he is in sinus mechanism with no evidence of malignant arrhythmia. He denies any palpitations. He has an echocardiogram done about a months ago that there is the possibility of tricuspid vegetation, the patient denies any IV drug abuse, fever or recent dental workup. 01/01 Patient seen and examined. Patient still admits to feeling somewhat flushed at times, decreased appetite, nauseous. Still some dizziness. Denies any chest pain or pressure. He is concerned regarding thyroid issues. KEN showed redundant tricuspid valve without any vegetation. Medications: Vancomycin PHYSICAL EXAMINATION: Vitals LUNGS: Clear to auscultation HEART: Regular rate and rhythm, S1, S2. No S3. No systolic murmur ABDOMEN: Soft, nontender, no organomegaly EXTREMETIES: No edema IMPRESSION: 1. Abnormal transthoracic echo, appears overcall with only redundant tricuspid valve 2. Dyspnea with no evidence of fluid overload 3. Dizziness, no evidence of arrhythmia 4. Right-sided chest discomfort, atypical for ischemic heart disease PLAN: Blood cultures have been negative and ESR noted to be normal. Patient's symptoms do not appear related to endocarditis and KEN not showing any significant mass or vegetation and only redundant tricuspid valve. Continue medical therapy. No further recommendations from cardiology standpoint. Follow-up outpatient 1 week. Objective - Vital Signs Vital signs: Vital Signs Temp 98 F 01/01/23 08:00 Pulse 67 01/01/23 08:00 Resp 18 01/01/23 08:00 BP 125/69 01/01/23 08:00 Pulse Ox 99 01/01/23 08:00 FiO2 Intake & Output 12/31/22 01/01/23 01/01/23 18:59 06:59 18:59 Intake Total 200 118 Output Total 0 Balance 200 118 Intake: IV 200 Oral 118 Output: Stool 0 Other: # Voids 1 1 - Labs CBC & Chem 7: 12/31/22 06:58 01/01/23 07:17 Labs: Microbiology - Last 24 Hours (Table) 12/29/22 22:50 Blood Culture - Preliminary Blood 12/29/22 22:25 Blood Culture - Preliminary Blood
--- NOTE | 2023-01-01 11:12 | P.PN ---
Subjective Progress Note Date: 01/01/23 Patient is a 27-year-old male with exercise-induced asthma who presented to the hospital secondary to nausea and dizziness 3 days. In November had an outpatient echocardiogram done which had shown a tricuspid vegetation and patient was awaiting outpatient cardiology appointment. He was therefore admitted for concerns of possible tricuspid endocarditis. Initially on presentation his [facility] te blood cell count was elevated at 11.1 and his lactic acid was elevated at 2.4. He was given IV fluids. Ranges are made for admission. Cardiology was consulted. Orthostatic vital signs were negative. On 12/31 he underwent a KEN which showed a redundant tricuspid valve with mild prolapse and regurgitation and no evidence of vegetation. His blood cultures were negative. Patient seen and examined at bedside. He continues to have dizziness. He reports it is unchanged from when he was admitted. He also has some nausea. He reports that he is having intermittent feelings of his arms being asleep that are more frequent than his normal. He is unsure what could have caused these symptoms. He has been ongoing since last Sunday. He reports that when he is upping moving he feels okay but he feels dizzy about 5 minutes after laying flat. He also reports feelings of being motion sick when he was transported down to the KEN yesterday. He also reports some dizziness and nausea after eating. 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 He does have a history of ALLERGIC rhinitis but states there is nothing unusual. Vital signs reviewed General: nontoxic, no distress, appears at stated age Cardiovascular: S1S2 reg, no murmur, positive posterior tibial pulse bilateral, Lungs: CTA bilateral, no rhonchi, no rales , no accessory muscle use Abdominal: soft, nontender to palpation, no guarding, no appreciable organomegaly Ext: no gross muscle atrophy, no edema, no contractures Neuro: CN II-XI grossly intact, no focal neuro deficits, negative [place]-Hallpike bilaterally, no tremors, no nystagamus Psych: Alert, oriented, appropriate affect Assessment: Dizziness, intractable Presyncope - Infectious endocarditis has been ruled out with negative transesophageal echo, negative blood cultures, and negative ESR - -Concerns are for possible neurologic etiology. Case discussed with Dr. Hatch. We'll check head CT, CTA head and neck to rule out carotid or vertebral dissection, B12, folic acid -Orthostatic vital signs were negative on presentation - Negative Aisha-Hallpike Chronic: Exercise-induced asthma, not in exacerbation Resolved: Lactic acidosis Leukocytosis Imaging: KEN: Normal left ventricular size and systolic function, redundant tricuspid valve with mild prolapse and mild regurgitation, mild mitral regurgitation, normal appearance of the descending thoracic aorta, no shunt Data Review: TSH-2.59, creatinine 0.78 Vital signs from this morning temperature 98.4, pulse 70, respirations 18, blood pressure 109/69, O2 sat 98% on room air Plan: -As above for dizziness -Stop vancomycin -Continue with Singulair 10 mg daily and Symbicort 160/4.52 puffs twice daily -Continue normal saline at 75 mL per hour given need for contrast DVT prophylaxis: Lovenox Anticipated discharge date: Pending clinical course Anticipated discharge place: Pending clinical course This dictation was prepared using [employer] voice recognition software. Though every attempt is made to correct errors during during dictation some may still exist. Objective - Vital Signs Vital signs: Vital Signs Temp 98 F 01/01/23 08:00 Pulse 67 01/01/23 08:00 Resp 18 01/01/23 08:00 BP 125/69 01/01/23 08:00 Pulse Ox 99 01/01/23 08:00 FiO2 Intake & Output 12/31/22 01/01/23 01/01/23 18:59 06:59 18:59 Intake Total 200 118 Output Total 0 Balance 200 118 Intake: IV 200 Oral 118 Output: Stool 0 Other: # Voids 1 1 - Labs CBC & Chem 7: 12/31/22 06:58 01/01/23 07:17 Labs: Microbiology - Last 24 Hours (Table) 12/29/22 22:50 Blood Culture - Preliminary Blood 12/29/22 22:25 Blood Culture - Preliminary Blood
--- NOTE | 2023-01-01 12:42 | CT ---
EXAMINATION TYPE: CT brain wo con CT DLP: 1029.6 mGycm, Automated exposure control for dose reduction was used. DATE OF EXAM: 01/01/2023 12:04 PM COMPARISON: 06/07/2009. CLINICAL INDICATION:Male, 27 years old with history of dizziness, dizziness TECHNIQUE: Brain: Axial CT images of the brain were obtained with coronal and sagittal reformats created and rev iewed. Contrast used: None. Oral contrast used: None. FINDINGS: Brain: Extra-axial spaces: No abnormal extra-axial fluid collections. Ventricular system: Within normal limits Cerebral parenchyma: No acute intraparenchymal hemorrhage or mass effect. The chaves-white junction is well differentiated. Cerebellum: Unremarkable. Mass effect: No evidence of midline shift. Intracranial vasculature: unremarkable Soft tissues: Normal. Calvarium/osseous structures: No depressed skull fracture. Paranasal sinuses and mastoid air cells: Mild scattered paranasal sinus disease. Visualized orbits: Orbital contents are intact. IMPRESSION: No acute intracranial process.
--- NOTE | 2023-01-01 12:48 | CT ---
EXAMINATION TYPE: CT angio head neck CT DLP: 663.1 mGycm, Automated exposure control for dose reduction was used. DATE OF EXAM: 01/01/2023 12:04 PM COMPARISON: CT head same day. CLINICAL INDICATION:Male, 27 years old with history of carotid or vertebral dissection; , dizziness TECHNIQUE: Axially acquired helical CT angiogram of the head and neck was obtained with contrast. Axi al images are supplemented with 3D reconstructions which [facility] NASCET criteria used. Contrast used:65 mL of Isovue 370 with IV Contrast, Oral contrast used: None. FINDINGS: CTA HEAD: No evidence of acute intracranial hemorrhage, mass effect, or midline shift. The ventricles, sulci, a nd cisterns are unremarkable. The visualized portions of the internal carotid arteries, middle cerebral arteries, anterior cerebral arteries, and posterior cerebral arteries are patent. The basilar and vertebral arteries are patent. CTA NECK: Right Carotid System: The common carotid artery and external carotid artery are patent. The carotid bifurcation demonstrate s no evidence of hemodynamically significant stenosis. The remaining portions of the internal carotid artery demonstrate normal size without significant narrowing. Left Carotid System: The common carotid artery and external carotid artery are patent. The carotid bifurcation demonstrate s no evidence of hemodynamically significant stenosis. The remaining portions of the internal carotid artery demonstrate normal size without significant narrowing. Vertebral arteries are patent without evidence hemodynamically significant stenosis. There is a three-vessel aortic arch. The origins of the great vessels are patent. No evidence of hemo dynamically significant stenosis. Upper thorax: IMPRESSION: 1. No evidence of dissection of the cervical internal carotid arteries or vertebral arteries or any e vidence of significant stenosis at the carotid bifurcations. 2. No evidence of intracranial high-grade stenosis or intracranial aneurysm.
--- NOTE | 2023-01-01 14:00 | P.CNNES ---
History of Present Illness Consult date: 01/01/23 Requesting physician: Sandra Baker Reason for Consult: dizziness History of Present Illness: This is a 27-year-old gentleman with been feeling dizzy for the past 1 week. Patient stated that the about a week ago he noticed that he was dizzy and was also evident that happened around 2 PM and he felt dizzy and mostly with exertion but also with rest. He cannot describe dizziness for me. He feels nauseous but denies any vomiting. Denies any visual disturbance. Denies any recent head or neck trauma. He feels he is having the head pressure mostly in the frontal that about 4-5 out of 10 and he has blurry vision both eyes that started the about yesterday the blurry vision while depression had he noticed today after he had wheeled down for images today. He also noticed that about 8 days ago while driving back home riding his loss he noticed that he's having numbness tingling of bilateral upper and lower extremity with also abnormal sensation in the chest that he noticed for about 45 minutes then when that he stood up his symptoms resolved. It seems the patient had a recent echo and month ago and the there is a considerable possibly tricuspid regurgitation in which the patient had a transesophageal echocardiogram which did not show any significant mass or vegetation and only redone to tricuspid valve. She stated that for the past slightly over a year he's been having shortness of breath mostly with exertion but also knows that with rest. Denies of any IV drug use. Denies of any dental recent workup. Denies of any fevers, focal weakness numbness. Patient denies of any family history similar to his presentation or any family history of autoimmune disease that he is aware of. Some other workup during his hospital visit: White blood cell on initial presentation is 11.1 thousand repeated 6.4. ESR is 2. TSH is 2.590. Calcium, sodium, glucose are within normal limits. Urine toxicology screen is not detected and the vancomycin was 14.5. Review of Systems Review of system: The 12 point system was reviewed and apparent positive and negative per HPI. Past Medical History Past Medical History: Asthma History of Any Multi-Drug Resistant Organisms: None Reported Past Surgical History: No Surgical Hx Reported Past Psychological History: No Psychological Hx Reported Smoking Status: Never smoker Past Alcohol Use History: Rare Past Drug Use History: None Reported Medications and Allergies Home Medications Medication Instructions Recorded Confirmed Type Albuterol Sulfate [Albuterol 2 puff PO RT-Q6H PRN 12/29/22 12/29/22 History Sulfate Hfa] Budesonide/Formoterol Fumarate 2 puff INHALATION RT-BID PRN 12/29/22 12/29/22 History [Symbicort 160-4.5 Mcg Inhaler] Montelukast Sodium [Singulair] 10 mg PO DAILY 12/29/22 12/29/22 History Allergies Allergy/AdvReac Type Severity Reaction Status Date / Time No Known Allergies Allergy Verified 12/29/22 22:19 Physical Examination - Vital Signs Vital Signs: Vital Signs Temp Pulse Pulse Resp BP Pulse Ox 01/01/23 08:00 98 F 67 18 125/69 99 01/01/23 04:22 97.6 F 56 L 16 128/54 99 01/01/23 00:13 97.8 F 76 16 117/61 98 12/31/22 20:00 98.0 F 70 18 136/65 97 12/31/22 14:50 97.7 F 64 16 111/70 99 Intake and Output 12/31/22 01/01/23 01/01/23 22:59 06:59 14:59 Intake Total 118 Output Total 0 Balance 118 Intake: Oral 118 Output: Stool 0 Other: # Voids 1 GENERAL: The patient is laying in bed and is not in acute distress. CHEST: The heart rate is regular rate rhythm. No murmurs to auscultation. LUNG: Clear to auscultation bilaterally no wheezing noted throughout. Not labored breathing. ABDOMEN/GI: Bowel sounds present in all 4 quadrants. No tenderness to palpation throughout. NEUROLOGICAL: Higher mental function: The patient is awake, alert, oriented to self, place and time. Patient is following commands. No aphasia and no neglect. Cranial nerves: The pupils are round, equal and reactive to light and accommodation. Visual aaron are full to confrontation throughout. Extraocular movement is intact no nystagmus is noted. Facial sensation is normal to touch throughout. The facial strength is normal throughout. Hearing is normal bilaterally to hand rub. Tongue is midline and moved [id number] without any difficulty. No dysarthria is noted. Shoulder shrug is normal bilaterally. Motor: Gait is normal. The strength is 5 over 5 throughout. Normal tone and bulk. Cerebellum: Normal finger to nose heel to mccormack bilaterally. Sensation: Sensation is normal to touch throughout. Reflexes (right/left): 2+ throughout. Plantars are downgoing bilaterally. Results - Laboratory Findings CBC and BMP: 12/31/22 06:58 01/01/23 07:17 Abnormal Lab Findings: Abnormal Labs 12/29/22 12/29/22 12/29/22 19:35 19:35 19:35 WBC 11.1 H Neutrophils # 8.9 H Glucose 126 H Plasma Lactic Acid Jt 2.4 H* Amorphous Sediment 12/29/22 20:13 WBC Neutrophils # Glucose Plasma Lactic Acid Jt Amorphous Sediment Occasional H Assessment and Plan Assessment: Dizziness with nausea for past 7 days, visual disturbance (feel blurry of both eyes) since yesterday with pressure headache and episode of transient paresthesia of all extremities and mid-chest: Unknown cause at this time Dyspnea for over 1 year of unknown cause Asthma Plan: Recommend pursuing CT of the head, CT angiography of the head and neck. If they are negative we'll pursue MRI the brain and cervical spine with and without. So far no arrhythmia. Orthostatics are negative. Ordered vitamin B12, folate, CK level, JILL, SSA, SSB antibody. Will get a routine EEG since having fluctuation of symptoms to rule out seizure or discharges. We'll defer the rest of the medical management to the primary team The plan was discussed with the patient, her sisters who are at bedside and the primary attending. All of the patient's questions have been answered. Thank you consultation Time with Patient: Greater than 30
[2023-01-02] MEDS: SODIUM CHLORIDE 0.9% 1,000 ML IV SCH (06:19)
[2023-01-02] MEDS: PANTOPRAZOLE 40 MG TABLET PO SCH (06:21)
[2023-01-02] MEDS ORDERED: VANCOMYCIN TROUGH DUE 1 EACH MISC MISCELLANE ONE (08:00)
[2023-01-02] MEDS: MONTELUKAST 10 MG TAB PO SCH (08:07)
[2023-01-02] MEDS: ENOXAPARIN 40 MG/0.4 ML SYRINGE SQ SCH (08:07)
[2023-01-02 08:26] LABS: African American GFR (CKD) >90 (>60 ml/min/1.73 sqM); Non-African American GFR(CKD) >90 (>60 ml/min/1.73 sqM)
[2023-01-02 09:04] VITALS: TEMP 97.6
[2023-01-02] MEDS: SYMBICORT 160-4.5 MCG INHALER INHALATION SCH (09:29)
--- NOTE | 2023-01-02 10:12 | MR ---
EXAMINATION TYPE: MR brain/cspine wo/w DATE OF EXAM: 01/02/2023 COMPARISON: CTA head and neck from yesterday. HISTORY: Visual disturbance, headache, dizziness. Neck pain. TECHNIQUE: Multiplanar, multisequence images of the brain and brainstem and cervical spine are all performed wit hout and with IV contrast, utilizing 7.5 mL intravenous Gadavist . FINDINGS: BRAIN: Diffusion weighted images demonstrate no evidence of a recent infarct or other diffusion abnormality. There is no extra-axial fluid collection or significant white matter signal abnormality. The ventr icular system and cisternal spaces are normal in size and appearance. The brain volume is age approp riate. Midline structures demonstrate normal morphology. The craniocervical junction appears within normal limits. Post contrast images demonstrate no abnormal enhancement. The dural venous sinuses appear pa tent. The visualized sinuses are clear and the globes are intact. IMPRESSION: Unremarkable study. C-SPINE: FINDINGS: Sagittal images of the cervical spine show the craniocervical junction to appear within nor mal limits. The cervical and upper thoracic spinal cord is normal in course, caliber, and signal. V ertebral alignment is anatomic. The vertebral body and intravertebral disk heights are normal. The bone marrow signal intensity is within normal limits. No abnormal postcontrast enhancement is seen. Axial images show there is no significant focal disk disease, spinal canal stenosis, neural foraminal narrowing, or spinal cord compromise at any cervical level. IMPRESSION: Negative MRI of the cervical spine, no significant abnormality is seen to account for destinee rebeca's clinical symptoms.
[2023-01-02 13:29] VITALS: RESP 17
[2023-01-02 13:34] VITALS: BP 125/70; PULSE 71
--- NOTE | 2023-01-02 14:07 | P.DS ---
Providers Date of admission: 12/29/22 23:43 Expected date of discharge: 01/02/23 Attending physician: Ana Fabian MD Consults: 01/01/23 10:42 Consult Physician Routine Consulting Provider: Bc Hatch Consult Reason/Comments: Dizziness Do you want consulting provider notified?: Yes Primary care physician: Sean Jaquez Hospital Course: Discharge Diagnosis: Dizziness, intermittent Presyncope Exercise-induced asthma, not in exacerbation Lactic acidosis Leukocytosis Hospital Course: Patient is a 27-year-old male with exercise-induced asthma who presented to the hospital secondary to nausea and dizziness 3 days. In November had an outpatient echocardiogram done which had shown a tricuspid vegetation and patient was awaiting outpatient cardiology appointment. He was therefore admitted for concerns of possible tricuspid endocarditis. Initially on presentation his white blood cell count was elevated at 11.1 and his lactic acid was elevated at 2.4. He was given IV fluids. Ranges are made for admission. Cardiology was consulted. Orthostatic vital signs were negative. On 12/31 he underwent a KEN which showed a redundant tricuspid valve with mild prolapse and regurgitation and no evidence of vegetation. His blood cultures were negative. He continued to have some dizziness. Neurology was consulted. He underwent a head CT which was unremarkable. He underwent a CT of the head and neck which again was unremarkable. He then underwent MRI brain and cervical spine which were unremarkable. ESR was normal. JILL, SSA, SSB were negative. He was determined stable to complete his workup in the outpatient setting. Follow-up: Dr. Jaquez in 1-2 days, Recommend Follow-up with Amadou, and as an alternatively Eric valdivia. I discussed with him no driving until the dizziness resolve. Patient seen and examined at bedside. He is still having dizziness. He now believes that it might be with sitting. We reviewed his test results with his grandmother present, that there is no concerning findings on CT head, CTA head and neck, MRI brain and cervical spine. We discused that is it safe to shift to an outpatient work up at this time, but that he should continue to follow with a neurologist and not drive until the dizziness is resolved. Vital signs reviewed and stable. General: nontoxic, no distress, appears at stated age Derm: warm, dry Head: atraumatic, normocephalic, symmetric Eyes: EOMI, no lid lag, anicteric sclera Mouth: no lip lesion, mucus membranes moist Cardiovascular: S1S2 reg, no murmur, positive posterior tibial pulse bilateral, Lungs: CTA bilateral, no rhonchi, no rales , no accessory muscle use Abdominal: soft, nontender to palpation, no guarding, no appreciable organomegaly Ext: no gross muscle atrophy, no edema, no contractures Neuro: CN II-XI grossly intact, no focal neuro deficits Psych: Alert, oriented, appropriate affect A total of 37 minutes of time were spent preparing this complex discharge summary. Patient was discharged on 01/02/23. This dictation was prepared using [employer] voice recognition software. Though every attempt is made to correct errors during during dictation some may still exist. Patient Condition at Discharge: Fair Plan - Discharge Summary Discharge Rx Participant: No New Discharge Prescriptions: Continue Montelukast Sodium [Singulair] 10 mg PO DAILY Albuterol Sulfate [Albuterol Sulfate Hfa] 2 puff PO RT-Q6H PRN PRN Reason: 30 MIN BEFORE EXERCISE Budesonide/Formoterol Fumarate [Symbicort 160-4.5 Mcg Inhaler] 2 puff INHALATION RT-BID PRN PRN Reason: Shortness Of Breath Discharge Medication List Albuterol Sulfate [Albuterol Sulfate Hfa] 2 puff PO RT-Q6H PRN 12/29/22 [History] Budesonide/Formoterol Fumarate [Symbicort 160-4.5 Mcg Inhaler] 2 puff INHALATION RT-BID PRN 12/29/22 [History] Montelukast Sodium [Singulair] 10 mg PO DAILY 12/29/22 [History] Follow up Appointment(s)/Referral(s): Sean Jaquez MD [Primary Care Provider] - 1-2 days Patient Instructions/Handouts: Vertigo (GEN), Dizziness (GEN) Activity/Diet/Wound Care/Special Instructions: Activity: As tolerated No driving until dizziness is resolved Diet: Regular Special Instructions: Keep a Journal of your symptoms, when they occur, how long they last, and what your are doing when they occur [facility] [address] [facility] [address] [place] [address] [facility] Let us help you schedule an appointment, call . Discharge Disposition: HOME SELF-CARE
--- NOTE | 2023-01-02 17:49 | P.PN ---
Subjective Progress Note Date: 01/02/23 Patient seen at bedside and he is accompanied with his grandmother as well as sister and he states that the he felt dizzy when he was going from sitting position maybe to a standing position. Otherwise denies any focal weakness numbness difficulty getting his words out or any other neurological issues. Objective - Vital Signs Vital signs: Vital Signs Temp 97.6 F 01/02/23 08:05 Pulse 71 01/02/23 13:33 Resp 17 01/02/23 11:00 BP 125/70 01/02/23 13:33 Pulse Ox 99 01/02/23 11:00 FiO2 Intake & Output 01/01/23 01/02/23 01/02/23 18:59 06:59 18:59 Intake Total 368 360 Output Total 0 Balance 368 360 Intake: Oral 368 360 Output: Stool 0 Other: Voiding Method Toilet # Voids 2 2 - Exam GENERAL: The patient is laying in bed and is not in acute distress. NEUROLOGICAL: Higher mental function: The patient is awake, alert, oriented to self, place and time. Patient is following commands. No aphasia and no neglect. Cranial nerves: The pupils are round, equal and reactive to light and accommodation. Visual aaron are full to confrontation throughout. Extraocular movement is intact no nystagmus is noted. Facial sensation is normal to touch throughout. The facial strength is normal throughout. Hearing is normal bilaterally to hand rub. Tongue is midline and moved [id number] without any difficulty. No dysarthria is noted. Shoulder shrug is normal bilaterally. Motor: Gait is normal. The strength is 5 over 5 throughout. Normal tone and bulk. Cerebellum: Normal finger to nose heel to mccormack bilaterally. Sensation: Sensation is normal to touch throughout. Reflexes (right/left): 2+ throughout. Plantars are downgoing bilaterally. Some other workup during his hospital visit: White blood cell on initial presentation is 11.1 thousand repeated 6.4. ESR is 2. TSH is 2.590. Calcium, sodium, glucose are within normal limits. Urine toxicology screen is not detected and the vancomycin was 14.5. Vitamin B12 is 622, folate is 19.409, TSH is 2.590, CK level 63. JILL ab, SSA antibody SSB antibody are negative. CT angiography of the head and neck was reported as no evidence of dissection of the cervical internal carotid artery vertebral artery or any evidence of significant stenosis at the carotid bifurcation. No evidence of intracranial high-grade stenosis or intracranial aneurysm. MR the brain with and without are negative - Labs CBC & Chem 7: 12/31/22 06:58 01/02/23 07:38 Labs: Microbiology - Last 24 Hours (Table) 12/29/22 22:50 Blood Culture - Preliminary Blood 12/29/22 22:25 Blood Culture - Preliminary Blood Assessment and Plan Assessment: Dizziness with nausea for past 7 days, visual disturbance (feel blurry of both eyes) since yesterday with pressure headache and episode of transient paresthesia of all extremities and mid-chest: Unknown cause at this time. Had extensive work-up and has been negative (MRI Brain/C-spine, JILL, EEG, CTA head and neck, JILL ab) Dyspnea for over 1 year of unknown cause Asthma Plan: Preliminary routine EEG is normal. So far no arrhythmia. Orthostatics are negative. Recommend getting a repeat orthostatic as well as consider repeat routine EEG as an outpatient or even long-term EEG to capture the patient's events. Repeat orthostatics are negative. We'll defer the rest of the medical management to the primary team Recommend the patient to follow-up with a neurologist as an outpatient within 1- 2 weeks The plan was discussed with the patient and family members were at bedside. Otherwise no additional workup Time with Patient: Less than 30
--- NOTE | 2023-01-02 22:08 | EEG ---
ELECTROENCEPHALOGRAM REPORT CLINICAL HISTORY: This is a 27-year-old gentleman with recurrent dizziness. The video EEG is obtained to evaluate for seizure epileptiform activity. RELEVANT MEDICATION: The patient is not on any anti-seizure medication. EEG TYPE: A routine 21-channel EEG is obtained to evaluate for seizure epileptiform activity. DESCRIPTION: Wakefulness is only obtained. During awake state, the posterior-dominant rhythm consists of per-yu-rftehtim voltage of 10.5 to 11.5 hertz activity that is well modulated, well sustained. There is no physiological sleep architecture. There is no focal slowing. Interictal and ictal is none. ACTIVATION PROCEDURE: Photic stimulation did not evoke a posterior driving response. There is no abnormality during the photic stimulation. Hyperventilation is not performed. CLINICAL INTERPRETATION: This is a normal routine EEG. There is no focal slowing, epileptiform discharge, or seizure on the EEG. Normal routine EEG does not rule out underlying epilepsy. Clinical correlation is recommended. ALKA / VERONIKA: [id number] /
== END 2023-01-02 14:26 | disposition home or self-care (01) ==
LOC: EC 19:15 → INTOOBSV 23:43 → 3SCARD 23:43 → UNDODISIN 01-02 14:26
PROVIDERS: ADMIT Internal Medicine; ATTEND Internal Medicine
DX: R55 Syncope and collapse (principal); I08.1 Rheumatic disorders of both mitral and tricuspid valves; R07.9 Chest pain, unspecified; J30.9 Allergic rhinitis, unspecified; E87.20 Acidosis, unspecified; D72.829 Elevated white blood cell count, unspecified; J45.990 Exercise induced bronchospasm; Z79.899 Other long term (current) drug therapy; Z20.822 Contact with and (suspected) exposure to COVID-19
CPT/HCPCS: 96361; 96366 ×5; 96372 ×4; 96375; 96365; 99285; 36415; 94640 ×5; 95816; 93005; 93312; 93320; 93325; 85379; 80053; 80048; 85652; 84443; 82607; 82565 ×2; 82550; 82746; 83605; 84484 ×2; 85025 ×2; 80202; 85610; 81001; 86038; 80306; 86235; 87635; 71046; 70496; 70450; 70498; 70553; 72156; G0378 ×4; J2250; J3370 ×4; J2405; J1650 ×4; J3010; Q9967; A9585

== ENCOUNTER 2023-02-23 13:41 | Emergency (ER) | payer BC ==
[2023-02-23] MEDS ORDERED: DIPH,PERTUS(ACELL)TETVAC-LF 0.5 ML VIAL IM ONE (14:02)
[2023-02-23] MEDS ORDERED: LIDOCAINE 1% INJ 10MG/ML (30 ML VIAL-PF) SQ ONE (14:02)
--- NOTE | 2023-02-23 14:20 | ED ---
General Adult HPI - General Chief complaint: Wound/Laceration Stated complaint: lt hand laceration Time Seen by Provider: 02/23/23 13:54 Source: patient, RN notes reviewed Mode of arrival: ambulatory Limitations: no limitations - History of Present Illness Initial comments: 27-year-old male presents emergency department for chief complaint of thumb lace ration. He states that he cut his left thumb with a box annealer. He states that the box annealer had been used. He reports normal range of motion in the thumb. Denies loss of sensation, tingling. States he has anxiety but is otherwise healthy. Unsure of date of last tetanus shot. - Related Data Home Medications Medication Instructions Recorded Confirmed Albuterol Sulfate [Albuterol 2 puff PO RT-Q6H PRN 12/29/22 12/29/22 Sulfate Hfa] Budesonide/Formoterol Fumarate 2 puff INHALATION RT-BID PRN 12/29/22 12/29/22 [Symbicort 160-4.5 Mcg Inhaler] Montelukast Sodium [Singulair] 10 mg PO DAILY 12/29/22 12/29/22 Previous Rx's Medication Instructions Recorded Cephalexin [Keflex] 500 mg PO Q6HR #20 cap 02/23/23 Allergies Allergy/AdvReac Type Severity Reaction Status Date / Time No Known Allergies Allergy Verified 02/23/23 13:50 Review of Systems ROS Statement: Those systems with pertinent positive or pertinent negative responses have been documented in the HPI. ROS Other: All systems not noted in ROS Statement are negative. Past Medical History Past Medical History: Asthma History of Any Multi-Drug Resistant Organisms: None Reported Past Surgical History: No Surgical Hx Reported Past Psychological History: No Psychological Hx Reported Smoking Status: Never smoker Past Alcohol Use History: Rare Past Drug Use History: None Reported General Exam Limitations: no limitations General appearance: alert, in no apparent distress Head exam: Present: atraumatic, normocephalic, normal inspection Eye exam: Present: normal appearance, PERRL, EOMI. Absent: scleral icterus, conjunctival injection, periorbital swelling ENT exam: Present: normal exam, mucous membranes moist Neck exam: Present: normal inspection. Absent: tenderness, meningismus, lymphadenopathy Respiratory exam: Present: normal lung sounds bilaterally. Absent: respiratory distress, wheezes, rales, rhonchi, stridor Cardiovascular Exam: Present: regular rate, normal rhythm, normal heart sounds. Absent: systolic murmur, diastolic murmur, rubs, gallop, clicks Extremities exam: Present: normal inspection, full ROM, normal capillary refill, other (laceration to dorsal aspect of left thumb at DIP about 1 cm with cut through tendon sheath but no obvious tenden involvement ). Absent: tenderness, pedal edema, joint swelling, calf tenderness Course Vital Signs 02/23/23 02/23/23 13:47 15:51 Temperature 98.3 F 97.8 F Pulse Rate 60 58 L Respiratory 20 18 Rate Blood Pressure 129/74 125/73 O2 Sat by Pulse 96 99 Oximetry Procedures - Laceration Laceration #1 Consent Obtained: verbal consent Indication: laceration Site: hand (lt thumb) Size (cm): 1 Description: linear Depth: simple, single layer (tendon sheath without obvious tendon involvement) Anesthetic Used: lidocaine 1% Anesthesia Technique: nerve block Pre-repair: wound explored, irrigated extensively Type of Sutures: other (monofilament) Size of Sutures: 5-0 Number of Sutures: 2 Technique: simple, interrupted Patient Tolerated Procedure: well, no complications Medical Decision Making - Medical Decision Making Was pt. sent in by a medical professional or institution (, PA, SENIOR ADMINISTRATIVE ASSOCIATE, urgent care, hospital, or residential...) When possible be specific @ -No Did you speak to anyone other than the patient for history (EMS, parent, family, police, friend...)? What history was obtained from this source @ -No Did you review nursing and triage notes (agree or disagree)? Why? @ -I reviewed and agree with nursing and triage notes Were old charts reviewed (outside hosp., previous admission, EMS record, old EKG, old radiological studies, urgent care reports/EKG's, residential records)? Report findings @ -No old charts were reviewed Differential Diagnosis (chest pain, altered mental status, abdominal pain women, abdominal pain men, vaginal bleeding, weakness, fever, dyspnea, syncope, headache, dizziness, GI bleed, back pain, seizure, CVA, palpatations, mental health, musculoskeletal)? @ -Differential Musculoskeletal Muscular strain, contusion, ligament sprain, fracture, arthritis, septic arthritis, bursitis, cellulitis, muscle spasm, nerve compression, DVT, arterial occlusion, herpes zoster, electrolyte abnormality, tumor.... This is not meant to be in all inclusive list EKG interpreted by me (3pts min.). @ -none X-rays interpreted by me (1pt min.). @ -XR of left thumb showed no obvious foreign body or acute fracture CT interpreted by me (1pt min.). @ -None done U/S interpreted by me (1pt. min.). @ -None done What testing was considered but not performed or refused? (CT, X-rays, U/S, labs)? Why? @ -None What meds were considered but not given or refused? Why? @ -None Did you discuss the management of the patient with other professionals (professionals i.e. DrRegan, PA, SENIOR ADMINISTRATIVE ASSOCIATE, lab, RT, psych nurse, vp digital marketing social media and crm, compensation analyst, teacher, officer lieutenant, piano case and bench assembler)? Give summary @ -No Was smoking cessation discussed for >3mins.? @ -No Was critical care preformed (if so, how long)? @ -No Were there social determinants of health that impacted care today? How? (Homelessness, low income, unemployed, alcoholism, drug addiction, transportation, low edu. Level, literacy, decrease access to med. care, long term, rehab)? @ -No Was there de-escalation of care discussed even if they declined (Discuss DNR or withdrawal of care, Hospice)? DNR status @ -No What co-morbidities impacted this encounter? (DM, HTN, Smoking, COPD, CAD, Cancer, CVA, ARF, Chemo, Hep., AIDS, mental health diagnosis, sleep apnea, morbid obesity)? @ -None Was patient admitted / discharged? Hospital course, mention meds given and route, prescriptions, significant lab abnormalities, going to OR and other pertinent info. @ -discharged. patient presented to the emergency department for chief complaint of finger laceration with a box annealer. Patient tetanus was updated. XR obtained which showed no obvious fb or fracture. Wound was extensively irrigated and visualized. Patient was also evaluated by my attending, Dr. Baires who agrees there does not appear to be any obvious tendon injury but injury to the tendon sheath. 2 simple interrupted sutures were placed, area was dressed and patient placed in a splint. Patient advised to take prescribed antibiotic to completion and follow up with hand surgery. Patient discharged in stable condition. Undiagnosed new problem with uncertain prognosis? @ -No Drug Therapy requiring intensive monitoring for toxicity (Heparin, Nitro, Insulin, Cardizem)? @ -No Were any procedures done? @ -yes laceration repair Diagnosis/symptom? @ -laceration Acute, or Chronic, or Acute on Chronic? @ -Acute Uncomplicated (without systemic symptoms) or Complicated (systemic symptoms)? @ -Uncomplicated Side effects of treatment? @ -No Exacerbation, Progression, or Severe Exacerbation? @ -No Poses a threat to life or bodily function? How? (Chest pain, [place], AR, pneumonia, PE, COPD, DKA, ARF, appy, cholecystitis, CVA, Diverticulitis, Homicidal, Suicidal, threat to staff... and all critical care pts) @ -No Disposition Clinical Impression: Laceration Disposition: HOME SELF-CARE Condition: Stable Instructions (If sedation given, give patient instructions): Care For Your Stitches (ED) Additional Instructions: Please follow up with orthopedics next week. Please take antibiotics to completion. Return to the emergency department for new or worsening symptoms. Prescriptions: Cephalexin [Keflex] 500 mg PO Q6HR #20 cap Is patient prescribed a controlled substance at d/c from ED?: No Referrals: Sean Jaquez MD [Primary Care Provider] - 1-2 days Danilo Pack DO [Doctor of Osteopathic Medicine] - 1-2 days Time of Disposition: 15:00
--- NOTE | 2023-02-23 14:33 | XR ---
EXAMINATION TYPE: XR finger LT DATE OF EXAM: 02/23/2023 COMPARISON: None HISTORY: First digit laceration TECHNIQUE: 3 view left thumb FINDINGS: No acute osseous abnormalities evident. Joint spaces are preserved. Soft tissues appear nor mal. No radiopaque foreign bodies are evident. Follow up exams can be performed 7-10 days of acute trauma for continued pain. IMPRESSION: 1. No acute osseous abnormality left thumb
[2023-02-23 15:52] VITALS: BP 125/73; PULSE 58; RESP 18; TEMP 97.8
== END 2023-02-23 15:52 | disposition home or self-care (01) ==
LOC: EC 13:41
DX: S61.012A Laceration without foreign body of left thumb without damage to nail, initial encounter (principal); J45.909 Unspecified asthma, uncomplicated; Z79.899 Other long term (current) drug therapy; Z79.51 Long term (current) use of inhaled steroids; Z23 Encounter for immunization; W27.5XXA Contact with paper-cutter, initial encounter
CPT/HCPCS: 73140; 90715; 99283; 90471; 12001; J2001

== ENCOUNTER 2023-03-14 10:55 | Day surgery (SDC) | payer BC ==
[2023-03-12 08:57] VITALS: BMI 21.7
--- NOTE | 2023-03-13 13:33 | P.HPOR ---
History of Present Illness H&P Date: 03/13/23 Subjective: This is a 27 year old male that presents today for follow up evaluation regarding a left thumb injury that occurred on 02/23/23 when he cut the dorsal aspect of the thumb with a utility knife at home. He was seen at the ED and sutures were placed. 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 Physical Examination: LUE: AIN/PIN/Radial/Ulnar/Median motor intact. Radial/Ulnar/Median SILT. 2+/4 Radial/Ulnar pulses palpated. 5/5 APB, 5/5 FDI. Negative Finkelsteins, negative CMC grind, negative Durkan's compression. 2cm dorsal oblique laceration over thumb IP joint well healed. Not able to hyperextend at thumb IP joint. Weakness with attempted resisted thumb extension compared to contralateral side. EPL palpable at level of hand with good tension. Impression: 1.) Left thumb EPL laceration Plan: Diagnosis and treatment options were discussed with the patient. He now has signs concerning for a partial or possibly complete EPL tear at the level of the IP joint in the finger. I recommend surgical exploration due to the weakness and new injury that he had on Sunday. He is scheduled for a left thumb extensor tendon repair at the level of the finger. Risks and benefits of surgery including bleeding, infection, damage to surrounding tissue, need for further surgery, residual numbness were discussed and the patient wished to go forward with surgery. I anticipate 4 to 6 weeks off of left handed work. We discussed he may return to work at 2 weeks if desired with right hand work only. The patient was agreeable with this plan. CC: Arun Pack DO Orthopedic Hand/Upper Extremity Surgeon Past Medical History Past Medical History: Asthma Additional Past Medical History / Comment(s): THUMB LACERATION 02/23/23 History of Any Multi-Drug Resistant Organisms: None Reported Past Surgical History: No Surgical Hx Reported Additional Past Surgical History / Comment(s): KEN Past Anesthesia/Blood Transfusion Reactions: No Reported Reaction Smoking Status: Never smoker - Past Family History Mother Family Medical History: No Reported History Medications and Allergies Home Medications Medication Instructions Recorded Confirmed Type Albuterol Sulfate [Albuterol 2 puff PO RT-Q6H PRN 12/29/22 03/12/23 History Sulfate Hfa] Budesonide/Formoterol Fumarate 2 puff INHALATION RT-BID PRN 12/29/22 03/12/23 Hi story [Symbicort 160-4.5 Mcg Inhaler] Montelukast Sodium [Singulair] 10 mg PO DAILY 12/29/22 03/12/23 History Citalopram Hydrobromide [CeleXA] 40 mg PO DAILY@1500 03/12/23 03/12/23 History Allergies Allergy/AdvReac Type Severity Reaction Status Date / Time No Known Allergies Allergy Verified 03/12/23 08:48 Physical Examination Osteopathic Statement: *. No significant issues noted on an osteopathic structural exam other than those noted in the History and Physical/Consult.
[2023-03-14] MEDS ORDERED: ONDANSETRON 4 MG/2 ML VIAL ONE (11:27)
[2023-03-14] MEDS ORDERED: LACTATED RINGERS 1,000 ML IV ONE (11:30)
[2023-03-14] MEDS ORDERED: ONDANSETRON 4 MG/2 ML VIAL IVP ONE (11:31)
[2023-03-14] MEDS ORDERED: SCOPOLAMINE 1 MG/72 HR PATCH TRANSDERM ONE (11:31)
[2023-03-14] MEDS ORDERED: DEXAMETHASONE SOD PHOSPHATE 4 MG/ML 1 ML VIAL IVP ONE (11:31)
[2023-03-14] MEDS ORDERED: PROPOFOL 10 MG/ML 20 ML VIAL IV ONE (11:58)
[2023-03-14] MEDS ORDERED: MIDAZOLAM 2 MG/2 ML VIAL ONE (11:58)
[2023-03-14] MEDS ORDERED: fentaNYL (PF) 50 MCG/ML 2 ML AMP ONE (11:58)
[2023-03-14] MEDS ORDERED: LIDOCAINE 2% INJ 20 MG/ML (2 ML VIAL) ONE (11:58)
[2023-03-14] MEDS ORDERED: LIDOCAINE 1% INJ 10MG/ML (20 ML MDV) SQ ONE ×2 (12:15)
[2023-03-14] MEDS ORDERED: BUPIVACAINE (PF) 0.5% 30 ML VIAL SQ ONE ×2 (12:15)
[2023-03-14] MEDS ORDERED: BACITRACIN ZINC 500 UNIT/GM OINT 28.4 GM TUBE TOPICAL ONE (12:36)
[2023-03-14 13:00] VITALS: TEMP 97
--- NOTE | 2023-03-14 13:21 | P.OP ---
Date of Procedure: 03/14/23 Preoperative Diagnosis: Left thumb EPL extensor tendon laceration Postoperative Diagnosis: Left thumb EPL extensor tendon laceration Procedure(s) Performed: Left thumb EPL extensor tendon laceration repair Anesthesia: AIDA Surgeon: Danilo Pack Data Management Associate #1: Miguel Mukherjee Estimated Blood Loss (ml): 0 Pathology: none sent Condition: stable Disposition: PACU Description of Procedure: This is a 28 year old male who presents today for a left thumb extensor tendon laceration repair. Risks and benefits of surgery were discussed with the patient including bleeding, damage to surrounding tissue, infection, need for further surgery as well as risks of anesthesia including pulmonary embolism and even and the patient wished to proceed with surgical intervention. The patient was seen in the pre-operative area by myself. Consent and H&P were completed and updated. The correct extremity was marked in the pre-operative area by myself and all other questions were answered. Operative Narrative: The patient was brought to the operating room by the department of anesthesia. They remained on the portable stretcher and a rolling hand table was brought to the side of the operative extremity. Pre-operative time out was performed indicating the correct patient, procedure and laterality. All in the room agreed. Pre-operative antibiotics were given prior to skin incision. The patient was then drifted off to sleep by the department of anesthesia. A nonsterile tourniquet was then applied to the operative extremity and the left upper extremity was then prepped and draped in normal sterile fashion. The operative extremity was the exsanguinated with an esmarch bandage and the tourniquet was inflated to 250mmHg. The previous scar from the laceration over the dorsal aspect of the thumb at the level of the IP joint was opened with a 15 blade scalpel. Blunt dissection was taken down to the extensor tendon taking care to protect dorsal sensory nerves. There was a 95% width laceration of the EPL tendon at the level of the thumb IP joint. Tendon edges were debrided and a 3-0 Ethibond suture was used to repair the extensor tendon laceration in multiple figure of 8 fashion followed by a running 5-0 prolene. The wound was then irrigated and skin closure was performed with 4-0 nylon suture. Digital block was performed with 8cc's of 0/55 bupivicaine and 2% lidocaine. Soft dressing and thumb spica splint was then applied. Tourniquet was let down and the hand had immediate perfusion. The patient was then woken by the department of anesthesia and transferred to PACU in stable condition. Miguel NICHOLAS was present for the case in it's entirety to assist in major portions of the procedure. Danilo Pack D.O. Orthopedic Hand/Upper Extremity Surgeon
[2023-03-14 14:01] VITALS: BP 131/72; PULSE 79; RESP 18
== END 2023-03-14 14:32 | disposition home or self-care (01) ==
LOC: OR 10:55
PROVIDERS: ATTEND Orthopaedic Surgery Hand Surgery
DX: S66.222A Laceration of extensor muscle, fascia and tendon of left thumb at wrist and hand level, initial encounter (principal); J45.909 Unspecified asthma, uncomplicated; F41.9 Anxiety disorder, unspecified; Z98.890 Other specified postprocedural states; W26.0XXA Contact with knife, initial encounter; Z79.51 Long term (current) use of inhaled steroids; Z79.899 Other long term (current) drug therapy
CPT/HCPCS: 26418; J2250; J1100; J2405; J0690; J2001 ×2; J3010; J2704

== ENCOUNTER 2023-07-18 16:56 | Emergency (ER) | payer BC ==
--- NOTE | 2023-07-18 18:21 | ED ---
General Adult HPI - General Source: patient, RN notes reviewed <Pooja Hay - Last Filed: 07/18/23 18:20> <Salty Baires - Last Filed: 07/18/23 18:47> - General Stated complaint: SOB- covid + Time Seen by Provider: 07/18/23 18:21 - History of Present Illness Initial comments: 28 year old male presents to the emergency department for chief complaint of shortness of breath. He states that he tested positive for covid on Sunday. He states that he feels that he has been wheezing. (Pooja Hay) Patient with history of asthma which has not required treatment in sometime presenting with coronavirus and wheezing. Patient took both Benadryl and Singulair earlier today which didn't significantly improve his symptoms. He has a Symbicort and albuterol inhaler at home. No significant dyspnea at the time my evaluation. He states he feels much better and wanted to get checked out. (Salty Baires) - Related Data Home Medications Medication Instructions Recorded Confirmed Albuterol Sulfate [Albuterol 2 puff PO RT-Q6H PRN 12/29/22 03/12/23 Sulfate Hfa] Budesonide/Formoterol Fumarate 2 puff INHALATION RT-BID PRN 12/29/22 03/12/23 [Symbicort 160-4.5 Mcg Inhaler] Montelukast Sodium [Singulair] 10 mg PO DAILY 12/29/22 03/12/23 Citalopram Hydrobromide [CeleXA] 40 mg PO DAILY@1500 03/12/23 03/12/23 Previous Rx's Medication Instructions Recorded HYDROcodone/APAP 5-325MG [Exchange 1 tab PO Q4HR PRN 3 Days #18 tab 03/14/23 5-325] predniSONE 50 mg PO DAILY #5 tab 07/18/23 Allergies Allergy/AdvReac Type Severity Reaction Status Date / Time No Known Allergies Allergy Verified 03/14/23 11:12 Review of Systems ROS Other: All systems not noted in ROS Statement are negative. <Pooja Hay - Last Filed: 07/18/23 18:20> ROS Other: All systems not noted in ROS Statement are negative. <Salty Baires - Last Filed: 07/18/23 18:47> ROS Statement: Those systems with pertinent positive or pertinent negative responses have been documented in the HPI. Past Medical History Past Medical History: Asthma Additional Past Medical History / Comment(s): THUMB LACERATION 02/23/23 History of Any Multi-Drug Resistant Organisms: None Reported Past Surgical History: No Surgical Hx Reported Additional Past Surgical History / Comment(s): KEN Past Anesthesia/Blood Transfusion Reactions: No Reported Reaction Smoking Status: Never smoker - Past Family History Mother Family Medical History: No Reported History <Pooja Hay - Last Filed: 07/18/23 18:20> General Exam <Pooja Hay - Last Filed: 07/18/23 18:20> General appearance: alert, in no apparent distress Head exam: Present: atraumatic, normocephalic Eye exam: Present: normal appearance, PERRL Respiratory exam: Present: wheezes. Absent: respiratory distress Cardiovascular Exam: Present: regular rate, normal rhythm GI/Abdominal exam: Present: soft, distended Neurological exam: Present: alert, oriented X3, CN II-XII intact, motor sensory deficit. Absent: normal gait Psychiatric exam: Present: normal affect, normal mood Skin exam: Present: warm, dry, intact <Salty Baires - Last Filed: 07/18/23 18:47> - General Exam Comments Initial Comments: Visual Physical Exam Vital signs reviewed General: Well-appearing, nontoxic, no acute distress. Head: Normocephalic, atraumatic Eyes: PERRLA, EOMI ENT: Airway patent Chest: Nonlabored breathing Skin: No visual rash, normal skin tone Neuro: Alert and oriented 3 Musculoskeletal: No gross abnormalities (Pooja Hay) Course Vital Signs 07/18/23 18:18 Temperature 98.3 F Pulse Rate 88 Respiratory 18 Rate Blood Pressure 119/71 O2 Sat by Pulse 99 Oximetry Medical Decision Making <Pooja Hay - Last Filed: 07/18/23 18:20> <Salty Baires - Last Filed: 07/18/23 18:47> - Medical Decision Making I preformed the quick note portion of this chart. Electronically signed by Pooja Hay PA-C. (Pooja Hay) Was pt. sent in by a medical professional or institution ([facility], [facility], urgent care, hospital, or jail...) When possible be specific @ -No Did you speak to anyone other than the patient for history (EMS, parent, family, police, friend...)? What history was obtained from this source @ -No Did you review nursing and triage notes (agree or disagree)? Why? @ -I reviewed and agree with nursing and triage notes Were old charts reviewed (outside hosp., previous admission, EMS record, old EKG, old radiological studies, urgent care reports/EKG's, jail records)? Report findings @ -No old charts were reviewed Differential Diagnosis (chest pain, altered mental status, abdominal pain women, abdominal pain men, vaginal bleeding, weakness, fever, dyspnea, syncope, headache, dizziness, GI bleed, back pain, seizure, CVA, palpatations, mental health, musculoskeletal)? @ -[Coronavirus, asthma exacerbation EKG interpreted by me (3pts min.). @ -As above X-rays interpreted by me (1pt min.). @ -None done CT interpreted by me (1pt min.). @ -None done U/S interpreted by me (1pt. min.). @ -None done What testing was considered but not performed or refused? (CT, X-rays, U/S, labs)? Why? @ -None What meds were considered but not given or refused? Why? @ -None Did you discuss the management of the patient with other professionals (professionals i.e. [facility], [facility], lab, RT, psych nurse, social staff worker, diversity intern, teacher, detention officer, case finisher)? Give summary @ -No Was smoking cessation discussed for >3mins.? @ -No Was critical care preformed (if so, how long)? @ -No Were there social determinants of health that impacted care today? How? (Homelessness, low income, unemployed, alcoholism, drug addiction, transport ation, low edu. Level, literacy, decrease access to med. care, care home, rehab)? @ -No Was there de-escalation of care discussed even if they declined (Discuss DNR or withdrawal of care, Hospice)? DNR status @ -No What co-morbidities impacted this encounter? (DM, HTN, Smoking, COPD, CAD, Cancer, CVA, ARF, Chemo, Hep., AIDS, mental health diagnosis, sleep apnea, morbid obesity)? @ -[History of asthma Was patient admitted / discharged? Hospital course, mention meds given and route, prescriptions, significant lab abnormalities, going to OR and other pertinent info. @ -Patient tested positive for coronavirus 2 days prior and presents with wheezing. His symptoms had improved with Benadryl and Singulair. He does have bilateral wheezing without respiratory distress or hypoxia. Patient's given strict return parameters and will continue to use his albuterol as needed. He's prescribed a course of steroids which she will start today. He will return to the emergency department with any worsening or changing symptoms. Undiagnosed new problem with uncertain prognosis? @ -No Drug Therapy requiring intensive monitoring for toxicity (Heparin, Nitro, Insulin, Cardizem)? @ -No Were any procedures done? @ -No Diagnosis/symptom? @ -Coronavirus, asthma exacerbation Acute, or Chronic, or Acute on Chronic? @ Acute Uncomplicated (without systemic symptoms) or Complicated (systemic symptoms)? @ -default Side effects of treatment? @ -No Exacerbation, Progression, or Severe Exacerbation? @ -No Poses a threat to life or bodily function? How? (Chest pain, [place], [place], pneumonia, PE, COPD, DKA, ARF, appy, cholecystitis, CVA, Diverticulitis, Homicidal, Suicidal, threat to staff... and all critical care pts) @ Low risk at this time (Salty Baires) Disposition <Pooja Hay - Last Filed: 07/18/23 18:20> Is patient prescribed a controlled substance at d/c from ED?: No Time of Disposition: 18:44 <Salty Baires - Last Filed: 07/18/23 18:47> Clinical Impression: Upper respiratory tract infection, Asthma, COVID-19 Disposition: HOME SELF-CARE Condition: Fair Instructions (If sedation given, give patient instructions): Asthma (DC), COVID-19 (Coronavirus Disease 2019) (ED) Prescriptions: predniSONE 50 mg PO DAILY #5 tab Referrals: Kirk Jaquez MD [Primary Care Provider] - 1-2 days
[2023-07-18 18:35] VITALS: BP 119/71; PULSE 88; RESP 18; TEMP 98.3
== END 2023-07-18 18:53 | disposition home or self-care (01) ==
LOC: EC 16:56
DX: U07.1 COVID-19 (principal); J45.909 Unspecified asthma, uncomplicated; Z79.51 Long term (current) use of inhaled steroids
CPT/HCPCS: 99284